=== PATIENT | female | born 1960 | race Caucasian/White ===

== ENCOUNTER → 2020-05-24 13:08 | Outpatient (BNVA) | payer MEDICARE, MEDICAID, SELFPAY | PROVIDERS: Visit Provider Anesthesiology | DX: M16.0 Bilateral primary osteoarthritis of hip (principal); M46.1 Sacroiliitis, not elsewhere classified; M47.16 Other spondylosis with myelopathy, lumbar region; G62.9 Polyneuropathy, unspecified; E11.42 Type 2 diabetes mellitus with diabetic polyneuropathy; Z79.899 Other long term (current) drug therapy | CPT/HCPCS: 99202 ==

== ENCOUNTER → 2020-06-14 13:52 | Outpatient (BNVA) | payer MEDICARE, MEDICAID, SELFPAY | PROVIDERS: PCP Nurse Practitioner Family; Visit Provider Anesthesiology | DX: M46.1 Sacroiliitis, not elsewhere classified (principal); M16.0 Bilateral primary osteoarthritis of hip; M47.16 Other spondylosis with myelopathy, lumbar region; G62.9 Polyneuropathy, unspecified; E11.42 Type 2 diabetes mellitus with diabetic polyneuropathy | CPT/HCPCS: 99212 ==

== ENCOUNTER 2020-06-27 06:26 | Outpatient (REF) | payer MEDICARE, MEDICAID, SELFPAY ==
--- NOTE | ~2020-06-27 | FL_ITS ---
EXAMINATION: XR FLUOROSCOPY WITH IMAGES CLINICAL INFORMATION: M46.1 - Sacroiliitis COMPARISON: None. TECHNIQUE: Fluoroscopy performed by Sally Mcguire NP. Fluoroscopy time: 0.3 minutes DAP: 1.63 Gycm2 Images: 1 FINDINGS: There is spinal needle overlying mid right SI joint. Some trace contrast is suggested both overlying the joint and early intra-articular. FL/FL guidance in treatment room IMPRESSION: Fluoroscopy for pain management procedure.
== END 2020-06-27 06:27 | disposition home or self-care (01) ==
LOC: HO.RADIR 06:26
PROVIDERS: Visit Provider Anesthesiology
DX: M46.1 Sacroiliitis, not elsewhere classified (principal)
CPT/HCPCS: 27096; J3300; Q9967

== ENCOUNTER → 2020-07-13 13:23 | Outpatient (BNVA) | payer MEDICARE, MEDICAID, SELFPAY | PROVIDERS: PCP Nurse Practitioner Family; Visit Provider Family Medicine Adult Medicine | DX: M46.1 Sacroiliitis, not elsewhere classified (principal); M16.0 Bilateral primary osteoarthritis of hip; M47.16 Other spondylosis with myelopathy, lumbar region; E11.42 Type 2 diabetes mellitus with diabetic polyneuropathy; M79.7 Fibromyalgia; M47.816 Spondylosis without myelopathy or radiculopathy, lumbar region; G62.9 Polyneuropathy, unspecified | CPT/HCPCS: 99212 ==

== ENCOUNTER → 2020-07-24 09:58 | Outpatient (BNVA) | payer MEDICARE, MEDICAID, SELFPAY | PROVIDERS: PCP Nurse Practitioner Family; Visit Provider Anesthesiology | DX: M46.1 Sacroiliitis, not elsewhere classified (principal); M16.0 Bilateral primary osteoarthritis of hip; M47.16 Other spondylosis with myelopathy, lumbar region; G62.9 Polyneuropathy, unspecified; E11.42 Type 2 diabetes mellitus with diabetic polyneuropathy | CPT/HCPCS: Q3014 ==

== ENCOUNTER → 2020-07-31 11:52 | Outpatient (BNVA) | payer MEDICARE, MEDICAID, SELFPAY | PROVIDERS: PCP Nurse Practitioner Family; Visit Provider Anesthesiology ==

== ENCOUNTER → 2020-08-07 13:22 | Outpatient (BNVA) | payer MEDICARE, MEDICAID, SELFPAY | PROVIDERS: PCP Nurse Practitioner Family; Visit Provider Anesthesiology | DX: M46.1 Sacroiliitis, not elsewhere classified (principal); M16.0 Bilateral primary osteoarthritis of hip; M47.16 Other spondylosis with myelopathy, lumbar region; G62.9 Polyneuropathy, unspecified; E11.42 Type 2 diabetes mellitus with diabetic polyneuropathy; M53.3 Sacrococcygeal disorders, not elsewhere classified | CPT/HCPCS: 99212 ==

== ENCOUNTER → 2020-08-21 14:31 | Outpatient (BNVA) | payer MEDICARE, MEDICAID, SELFPAY | PROVIDERS: PCP Nurse Practitioner Family; Visit Provider Anesthesiology | DX: M79.7 Fibromyalgia (principal); M46.1 Sacroiliitis, not elsewhere classified; M16.0 Bilateral primary osteoarthritis of hip; M47.16 Other spondylosis with myelopathy, lumbar region; G62.9 Polyneuropathy, unspecified; E11.42 Type 2 diabetes mellitus with diabetic polyneuropathy | CPT/HCPCS: Q3014 ==

== ENCOUNTER 2020-08-25 11:31 | Outpatient (REF) | payer MEDICARE, MEDICAID, SELFPAY ==
[2020-08-25 14:32] LABS: Alanine Aminotransferase 13 U/L (0-31); Albumin Level 4.1 g/dL (3.5-5.0); Alkaline Phosphatase 97 U/L (39-117); Anion Gap 12 (12-20); Aspartate Amino Transferase 18 U/L (5-31); Bilirubin Total 0.2 mg/dL (0.0-1.0); Blood Urea Nitrogen 8 mg/dL (9-16); Calcium 9.5 mg/dL (8.4-10.2); Carbon Dioxide 29 mmol/L (22-29); Chloride 105 mmol/L (96-108); Estimated Glomerular Filt Rate > 60; Glucose Random 80 mg/dL (60-115); Potassium 4.9 mmol/L (3.3-5.1); Sodium 141 mmol/L (135-145); Total Protein 6.7 g/dL (6.5-8.0)
== END 2020-08-25 11:32 | disposition home or self-care (01) ==
LOC: HO.10HDL 11:31
PROVIDERS: Visit Provider Anesthesiology
DX: M79.7 Fibromyalgia (principal)
CPT/HCPCS: 36415; 80053

== ENCOUNTER 2020-09-08 13:02 | Day surgery (SDC) | payer MEDICARE, MEDICAID, SELFPAY ==
[2020-09-08] VITALS (12 sets, daily range): BP systolic 85–135; BP diastolic 40–84; PULSE 64–104; RESP 14–18; TEMP 36.3–36.5; O2SAT 95–100; BMI 26.6
--- NOTE | ~2020-09-08 | FL_ITS ---
EXAMINATION: XR FLUOROSCOPY WITH IMAGES CLINICAL INFORMATION: Right-sided sacroiliac joint fusion. COMPARISON: None. TECHNIQUE: Fluoroscopy performed by Marck Robertson. Fluoroscopy time: 1.0 minutes DAP: 31.5 mGycm2 Images: 4 FINDINGS: Posterior instrumentation and interval hardware at S1-S2. FL/FL guidance in OR IMPRESSION: Limited intraoperative fluoroscopic radiographs.
--- NOTE | 2020-09-08 13:27 | HO.ANESPROP2 ---
FORMERLY [facility] Active Problems Active Problems: All Active Problems (Updated 08/07/20 @ 14:31 by Marck Robertson MD) Sacroiliac joint dysfunction of right side (Acute) Sacroiliac joint dysfunction of both sides (Acute) Lumbar spondylosis (Acute) Fibromyalgia (Acute) Diabetic peripheral neuropathy (Acute) Peripheral polyneuropathy (Acute) Spondylosis, lumbar, with myelopathy (Acute) Osteoarthritis, hip, bilateral (Acute) Sacroiliitis (Acute) Past Medical History Medical History Diabetic peripheral neuropathy Fibromyalgia Lumbar spondylosis Osteoarthritis, hip, bilateral Peripheral polyneuropathy Sacroiliac joint dysfunction of both sides Sacroiliac joint dysfunction of right side Sacroiliitis Spondylosis, lumbar, with myelopathy Surgical History Surgical History History of bariatric surgery Social History Social History Household Members Other:: lives with partner/friend Alcohol intake: never Patient Tobacco Use Status: Current everyday Tobacco user Use of substances other than those prescribed or required for medical reasons: No Have you been hit, kicked, punched, or otherwise hurt by someone within the past year? If so, by whom?: No Are you DNR?: No Advance Directives: No Advance Directives Information Provided: Yes Current occupation: disabled about 10 years due to fibromyalgia and low back pain Meds Allergies Allergy/AdvReac Type Severity Reaction Status Date / Time buprenorphine [From Belbuca] Allergy Mild Nausea Verified 09/08/20 13:06 gabapentin Allergy Mild Nausea Verified 09/08/20 13:06 latex Allergy Mild rash Verified 09/08/20 13:06 prednisone Allergy Mild rash Verified 09/08/20 13:06 pregabalin [From Lyrica] Allergy Mild rash Verified 09/08/20 13:06 Home Medications Medication Instructions Recorded Confirmed Last Taken Type amantadine HCl 100 mg capsule 100 mg PO DAILY 05/24/20 08/21/20 Unknown History lidocaine 5 % topical patch 1 patch TOPICAL DAILY 05/24/20 08/21/20 Unknown History loratadine 10 mg tablet 10 mg PO DAILY 05/24/20 08/21/20 Unknown History lorazepam 1 mg tablet 1 mg PO 05/24/20 08/21/20 Unknown History clonidine HCl 0.1 mg tablet 0.1 mg PO TID 06/14/20 08/21/20 Unknown History diazepam 2 mg tablet 1 mg PO DAILY tab 07/31/20 08/21/20 Unknown History diazepam 2 mg tablet 2 mg PO BEDTIME PRN 07/31/20 08/21/20 Unknown History Exam Exam Date and Time: September 08, 2020 1327 Height,Weight and Vital Signs: Height 5 ft 7 in Weight 77.111 kg Last Vital Signs Temp 97.7 F 09/08/20 13:16 Pulse 81 09/08/20 13:16 Resp 18 09/08/20 13:16 BP 125/55 L 09/08/20 13:16 Pulse Ox 98 09/08/20 13:16 Airway Mallampati Class: II TM Dist: >3cm Neck ROM: Full
--- NOTE | 2020-09-08 13:42 | MHC.SHP ---
Pre-Procedural Eval Section A Date of Service: 09/08/20 Changes since office visit: Yes Patient answered all questions The History & Physical has been completed within 30 days and I have reviewed it.: Yes Section B Chief Complaint: Sacroiliitis Details of Present Illness: as above Relevant Family History (Specify if Yes): No Relevant Social History: None Present Medications: see Short Stay Collaborative assessment Medical History: No relevant PMH History of Previous Operations: No relevant previous surgery Allergies: Allergies Allergy/AdvReac Type Severity Reaction Status Date / Time buprenorphine [From Belbuca] Allergy Mild Nausea Verified 09/08/20 13:06 gabapentin Allergy Mild Nausea Verified 09/08/20 13:06 latex Allergy Mild rash Verified 09/08/20 13:06 prednisone Allergy Mild rash Verified 09/08/20 13:06 pregabalin [From Lyrica] Allergy Mild rash Verified 09/08/20 13:06 Review of Systems Sugical H&P ROS: Negative: Constitution, Cardiovascular, Respiratory, Neurological, Psychiatric, Hem-Onc, Allergic/Immunologic, Gastrointestinal, Genitourinary, Musculoskeletal, Integumentary, Endocrine and Eyes/Ears/Nose/Throat Exam Surgical H&P Exam: Normal: HEENT, Normal: Heart, Normal: Lungs, Normal: Extremities, Normal: Abdomen, Normal: Skin and Normal: Neurological Plan Diagnosis/Plan: Unchanged I have reviewed the history and physical and performed a pertinent physical examination on my patient. No changes have occurred unless specified.
[2020-09-08] MEDS: Lactated Ringers 1,000 ML 100 ML IVCONT (13:44)
--- NOTE | 2020-09-08 13:56 | PC.NURSE ---
PATIENT WAS DIABETIC 13 YEARS AGO BUT HAS LOST WEIGHT AND HAS NOT BEEN TREATED FOR DIABETES FOR 13 YEARS. POC 90.
[2020-09-08 14:00] LABS: Glucose, Whole Blood 90 mg/dL (60-115)
--- NOTE | 2020-09-08 15:24 | PM.OP ---
Brief Operative Note Date of Service: 09/08/20 Pre-op diagnosis: Sacroiliitis sacroiliac joint instability Post-op diagnosis: same Procedure: PainteQ RIGHT SACROILIAC JOINT FUSION. Implants: ALLOGRAFT BONE AND BY LOGIC MATERIAL Surgeon: Marck Robertson MD Anesthesia: GETA Was an Associate Director Finance used for this Procedure?: No Estimated blood loss (mL): 40 Pathology: none sent Condition: stable Disposition: PACU
--- NOTE | 2020-09-08 15:29 | P.OP_ITS ---
Operative Note Operative Note Date of Service: 09/08/20 Narrative: Maren is very pleasant 60 years old female who is suffering from right sacroiliac joint insufficiency, instability and sacroiliitis on the right. She failed conservative management of sacroiliitis. She came today to receive the procedures as above. The risks and benefits including bleeding, infection, peripheral nerve damage, failure to reduce the pain were explained to the patient. The patient came to the operating room, she was positioned on the stretcher supine .[place] [employer] monitors were applied and patient was administered with general endotracheal anesthesia. After that the patient was transferred on operating table and positioned prone with all pressure points protected. The patient was administered 2 gramms cefasolin IV 15 minutes before the start of the procedure. Time-out was performed delineating correct site, side, and nature of the procedure, name and date of of the patient, risk of fire, need for DVT prophylaxis, need for antibiotics. All pressure points were protected. Lower back and bilateral buttocks were prepped with ChloraPrep and draped with full body drape. 3. 5 cm posterior midline incision over the projection of the right S1 foramina was performed. Soft tissue dissection done to sacroiliac joint and thorough blind dissection was made in the direction of the sacroiliac joint. K- wire pin was inserted into the sacroiliac joint and guiding instrument was inserted into the joint and advanced into the joint on the intermittent anterior posterior and lateral views. After that pin was removed and rasping device was inserted to broach and rasp sacroiliac joint. Once joint was prepared and inserted the structural allograft implant was hammered into the joint and packed ortho biologics in and around the implant to provide better opportunity for bones fusion. Surgery was concluded by performing standard suture closing technique. The position of the allograft was confirmed radiographically. The wound was irrigated, hemostasis was a chieved , wound was closed in 2 layers. Sterile dressing was applied. The patient tolerated procedure well, she was awaken and taken outside of the operating room to PACU where she recovered uneventfully. She went home without immediate complications. She will be wearing an SI joint fixation belt for the 6 weeks after the procedure.
[2020-09-08] MEDS: ondansetron HCL 4 MG/2 ML VIAL IVPUSH (15:44)
== END 2020-09-08 17:58 | disposition home or self-care (01) ==
PROVIDERS: PCP Nurse Practitioner Family; Visit Provider Anesthesiology
PROC: (CPT 27279; principal; 2020-09-08 14:00)
DX: M46.1 Sacroiliitis, not elsewhere classified (principal); M53.2X8 Spinal instabilities, sacral and sacrococcygeal region; M16.0 Bilateral primary osteoarthritis of hip; M47.16 Other spondylosis with myelopathy, lumbar region; M79.7 Fibromyalgia; M53.3 Sacrococcygeal disorders, not elsewhere classified; E11.42 Type 2 diabetes mellitus with diabetic polyneuropathy; Z98.84 Bariatric surgery status; F43.10 Post-traumatic stress disorder, unspecified; Z79.899 Other long term (current) drug therapy; Z88.8 Allergy status to other drugs, medicaments and biological substances; Z91.040 Latex allergy status; F17.200 Nicotine dependence, unspecified, uncomplicated
CPT/HCPCS: 27279; 82947; C1713; J0131; J0690; J1100; J1170; J1790; J2250; J2405; J2550; J3010; Q9967

== ENCOUNTER → 2020-09-19 10:31 | Outpatient (BNVA) | payer MEDICARE, MEDICAID, SELFPAY | PROVIDERS: PCP Nurse Practitioner Family; Visit Provider Nurse Practitioner Family | DX: M79.7 Fibromyalgia (principal); M46.1 Sacroiliitis, not elsewhere classified; M16.0 Bilateral primary osteoarthritis of hip; M47.16 Other spondylosis with myelopathy, lumbar region; G62.9 Polyneuropathy, unspecified; E11.42 Type 2 diabetes mellitus with diabetic polyneuropathy | CPT/HCPCS: 99212 ==

== ENCOUNTER → 2020-12-06 16:41 | Outpatient (BNVA) | payer MEDICARE, MEDICAID, SELFPAY | PROVIDERS: PCP Nurse Practitioner Family; Visit Provider Anesthesiology | DX: M79.7 Fibromyalgia (principal); M46.1 Sacroiliitis, not elsewhere classified; M16.0 Bilateral primary osteoarthritis of hip; M47.16 Other spondylosis with myelopathy, lumbar region; G62.9 Polyneuropathy, unspecified; E11.42 Type 2 diabetes mellitus with diabetic polyneuropathy | CPT/HCPCS: 99212 ==

== ENCOUNTER → 2020-12-13 14:24 | Outpatient (BNVA) | payer MEDICARE, MEDICAID, SELFPAY | PROVIDERS: PCP Nurse Practitioner Family; Visit Provider Anesthesiology ==

== ENCOUNTER → 2021-01-10 14:31 | Outpatient (BNVA) | payer MEDICARE, MEDICAID, SELFPAY | PROVIDERS: PCP Nurse Practitioner Family; Visit Provider Anesthesiology | DX: M79.7 Fibromyalgia (principal); M46.1 Sacroiliitis, not elsewhere classified; M16.0 Bilateral primary osteoarthritis of hip; M47.16 Other spondylosis with myelopathy, lumbar region; G62.9 Polyneuropathy, unspecified; E11.42 Type 2 diabetes mellitus with diabetic polyneuropathy | CPT/HCPCS: 99212 ==

== ENCOUNTER → 2021-01-22 12:58 | Outpatient (BNVA) | payer MEDICARE, MEDICAID, SELFPAY | PROVIDERS: PCP Nurse Practitioner Family; Visit Provider Internal Medicine | DX: J44.9 Chronic obstructive pulmonary disease, unspecified (principal); R05.9 Cough, unspecified; F17.200 Nicotine dependence, unspecified, uncomplicated | CPT/HCPCS: 99202 ==

== ENCOUNTER 2021-02-02 12:58 | Outpatient (REF) | payer MEDICARE, MEDICAID, SELFPAY ==
--- NOTE | 2021-02-02 16:50 | PFT_ITS ---
FLOWS: FEV1 66% of predicted at 1.89 L. FVC 84% of predicted at 3.10 L. FEV1 to FVC ratio of 0.61. Positive bronchodilator response. LUNG VOLUMES: Total lung capacity 98% of predicted at 5.41 L. Residual volume 119% of predicted at 2.55 L. Slow vital capacity 84% of predicted at 2.86 L. Expiratory reserve volume 64% of predicted at 0.65 L. Diffusion capacity is severely decreased. IMPRESSION: Moderate obstructive ventilatory defect with positive bronchodilator response. Decreased diffusion capacity suggests emphysema. Sekou Briggs MD AP/MODL / [id number]
== END 2021-02-02 12:59 | disposition home or self-care (01) ==
LOC: HO.RESP 12:58
PROVIDERS: PCP Nurse Practitioner Family; Visit Provider Internal Medicine
DX: J44.9 Chronic obstructive pulmonary disease, unspecified (principal); R05.9 Cough, unspecified; F17.200 Nicotine dependence, unspecified, uncomplicated
CPT/HCPCS: 94060; 94727; 94729

== ENCOUNTER → 2021-02-22 08:01 | Outpatient (BNVA) | payer MEDICARE, MEDICAID, SELFPAY | PROVIDERS: PCP Nurse Practitioner Family; Visit Provider Anesthesiology | DX: J44.9 Chronic obstructive pulmonary disease, unspecified (principal); R05.9 Cough, unspecified; F17.200 Nicotine dependence, unspecified, uncomplicated; M16.0 Bilateral primary osteoarthritis of hip; M79.7 Fibromyalgia; M46.1 Sacroiliitis, not elsewhere classified; M47.16 Other spondylosis with myelopathy, lumbar region; G62.9 Polyneuropathy, unspecified; E11.42 Type 2 diabetes mellitus with diabetic polyneuropathy | CPT/HCPCS: 99212; Q3014 ==

== ENCOUNTER 2021-03-05 11:25 | Outpatient (REF) | payer MEDICARE, MEDICAID, SELFPAY ==
--- NOTE | ~2021-03-05 | XR_ITS ---
EXAMINATION: XR HIP, RIGHT XR HIP, LEFT CLINICAL INFORMATION: Bilateral primary osteoarthritis of the hip. COMPARISON: None TECHNIQUE: AP and frog-leg lateral views of each hip. FINDINGS: RIGHT HIP: Small marginal osteophytes are present at the right hip joint. Right hip joint space appears well preserved. No fracture or malalignment. Bones are osteopenic. There is an osseous allograft at the right sacral ala suggesting prior right SI joint fusion. No definite osseous bridging across the right SI joint is seen on these images. 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 LEFT HIP: Left hip joint appears relatively well preserved aside from small marginal osteophytes. Unremarkable left SI joint. No fracture or malalignment. Bones are osteopenic. Soft tissues are unremarkable aside from a few phleboliths in the central pelvis. XR/XR hips SHAHRZAD min 3V IMPRESSION: 1. Osteoarthritis of the right sacroiliac joint with postsurgical changes of prior fusion. No definite osseous bridging across the SI joint on these images. 2. 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 3. Minimal osteoarthritis at the right hip. 4. Osteopenia.
[2021-03-05 15:24] LABS: Alanine Aminotransferase 11 U/L (0-31); Albumin Level 3.9 g/dL (3.5-5.0); Alkaline Phosphatase 84 U/L (39-117); Anion Gap 14 (12-20); Aspartate Amino Transferase 14 U/L (5-31); Bilirubin Total 0.4 mg/dL (0.0-1.0); Blood Urea Nitrogen 9 mg/dL (9-16); Carbon Dioxide 25 mmol/L (22-29); Chloride 104 mmol/L (96-108); Estimated Glomerular Filt Rate > 60; Glucose Random 88 mg/dL (60-115); Potassium 4.9 mmol/L (3.3-5.1); Sodium 138 mmol/L (135-145); Total Protein 6.5 g/dL (6.5-8.0)
== END 2021-03-05 11:26 | disposition home or self-care (01) ==
LOC: HO.10HDL 11:25
PROVIDERS: Visit Provider Anesthesiology
DX: M79.7 Fibromyalgia (principal); M16.0 Bilateral primary osteoarthritis of hip
CPT/HCPCS: 36415; 73522; 80053

== ENCOUNTER → 2021-03-07 15:13 | Outpatient (BNVA) | payer MEDICARE, MEDICAID, SELFPAY | PROVIDERS: PCP Nurse Practitioner Family; Visit Provider Anesthesiology | DX: M79.7 Fibromyalgia (principal); M46.1 Sacroiliitis, not elsewhere classified; M16.0 Bilateral primary osteoarthritis of hip; M47.16 Other spondylosis with myelopathy, lumbar region; G62.9 Polyneuropathy, unspecified; E11.42 Type 2 diabetes mellitus with diabetic polyneuropathy | CPT/HCPCS: 99212 ==

== ENCOUNTER → 2021-03-21 16:37 | Outpatient (BNVA) | payer MEDICARE, MEDICAID, SELFPAY | PROVIDERS: PCP Nurse Practitioner Family; Visit Provider Anesthesiology | DX: Z51.81 Encounter for therapeutic drug level monitoring (principal); F11.20 Opioid dependence, uncomplicated; M79.7 Fibromyalgia; M46.1 Sacroiliitis, not elsewhere classified; M16.0 Bilateral primary osteoarthritis of hip; M47.16 Other spondylosis with myelopathy, lumbar region; E11.42 Type 2 diabetes mellitus with diabetic polyneuropathy | CPT/HCPCS: 99212 ==

== ENCOUNTER → 2021-04-18 09:31 | Outpatient (BNVA) | payer MEDICARE, MEDICAID, SELFPAY | PROVIDERS: PCP Nurse Practitioner Family; Visit Provider Anesthesiology | DX: Z51.81 Encounter for therapeutic drug level monitoring (principal); F11.20 Opioid dependence, uncomplicated; M79.7 Fibromyalgia; M46.1 Sacroiliitis, not elsewhere classified; M16.0 Bilateral primary osteoarthritis of hip; M47.16 Other spondylosis with myelopathy, lumbar region; G62.9 Polyneuropathy, unspecified; E11.42 Type 2 diabetes mellitus with diabetic polyneuropathy | CPT/HCPCS: 99212 ==

== ENCOUNTER → 2021-05-16 11:37 | Outpatient (BNVA) | payer MEDICARE, MEDICAID, SELFPAY | PROVIDERS: PCP Nurse Practitioner Family; Visit Provider Anesthesiology | DX: Z51.81 Encounter for therapeutic drug level monitoring (principal); F11.20 Opioid dependence, uncomplicated | CPT/HCPCS: 99212 ==

== ENCOUNTER → 2021-06-13 11:11 | Outpatient (BNVA) | payer MEDICARE, MEDICAID, SELFPAY | PROVIDERS: PCP Nurse Practitioner Family; Visit Provider Anesthesiology | DX: Z51.81 Encounter for therapeutic drug level monitoring (principal); F11.20 Opioid dependence, uncomplicated | CPT/HCPCS: 99212 ==

== ENCOUNTER → 2021-08-01 11:32 | Outpatient (BNVA) | payer MEDICARE, MEDICAID, SELFPAY | PROVIDERS: PCP Nurse Practitioner Family; Visit Provider Anesthesiology | DX: Z13.89 Encounter for screening for other disorder (principal) ==

== ENCOUNTER → 2021-08-29 11:28 | Outpatient (BNVA) | payer MEDICARE, MEDICAID, SELFPAY | PROVIDERS: PCP Nurse Practitioner Family; Visit Provider Anesthesiology | DX: M53.3 Sacrococcygeal disorders, not elsewhere classified (principal); M79.7 Fibromyalgia; M46.1 Sacroiliitis, not elsewhere classified; M16.0 Bilateral primary osteoarthritis of hip; M47.16 Other spondylosis with myelopathy, lumbar region; G62.9 Polyneuropathy, unspecified; E11.42 Type 2 diabetes mellitus with diabetic polyneuropathy; Z79.891 Long term (current) use of opiate analgesic | CPT/HCPCS: 99212 ==

== ENCOUNTER → 2021-10-24 15:29 | Outpatient (BNVA) | payer MEDICARE, MEDICAID, SELFPAY | PROVIDERS: PCP Nurse Practitioner Family; Visit Provider Anesthesiology | DX: M53.3 Sacrococcygeal disorders, not elsewhere classified (principal); M79.7 Fibromyalgia; M46.1 Sacroiliitis, not elsewhere classified; M16.0 Bilateral primary osteoarthritis of hip; M47.16 Other spondylosis with myelopathy, lumbar region; G62.9 Polyneuropathy, unspecified; E11.42 Type 2 diabetes mellitus with diabetic polyneuropathy; Z79.891 Long term (current) use of opiate analgesic | CPT/HCPCS: 99212 ==

== ENCOUNTER → 2021-12-26 13:30 | Outpatient (BNVA) | payer MEDICARE, MEDICAID, SELFPAY | PROVIDERS: PCP Nurse Practitioner Family; Visit Provider Anesthesiology | DX: M53.3 Sacrococcygeal disorders, not elsewhere classified (principal); K71.6 Toxic liver disease with hepatitis, not elsewhere classified; T50.905A Adverse effect of unspecified drugs, medicaments and biological substances, initial encounter; M79.7 Fibromyalgia; M46.1 Sacroiliitis, not elsewhere classified; M16.0 Bilateral primary osteoarthritis of hip; M47.16 Other spondylosis with myelopathy, lumbar region; G62.9 Polyneuropathy, unspecified; E11.42 Type 2 diabetes mellitus with diabetic polyneuropathy | CPT/HCPCS: 99212 ==

== ENCOUNTER → 2022-02-27 13:28 | Outpatient (BNVA) | payer MEDICARE, MEDICAID, SELFPAY | PROVIDERS: PCP Nurse Practitioner Family; Visit Provider Anesthesiology | DX: M53.3 Sacrococcygeal disorders, not elsewhere classified (principal); M79.7 Fibromyalgia; M46.1 Sacroiliitis, not elsewhere classified; M16.0 Bilateral primary osteoarthritis of hip; M47.16 Other spondylosis with myelopathy, lumbar region; G62.9 Polyneuropathy, unspecified; E11.42 Type 2 diabetes mellitus with diabetic polyneuropathy | CPT/HCPCS: 99212 ==

== ENCOUNTER → 2022-04-24 13:36 | Outpatient (BNVA) | payer MEDICARE, MEDICAID, SELFPAY | PROVIDERS: PCP Nurse Practitioner Family; Visit Provider Anesthesiology | DX: Z51.81 Encounter for therapeutic drug level monitoring (principal); F11.20 Opioid dependence, uncomplicated; M53.3 Sacrococcygeal disorders, not elsewhere classified; M79.7 Fibromyalgia; M46.1 Sacroiliitis, not elsewhere classified; M16.0 Bilateral primary osteoarthritis of hip; M47.16 Other spondylosis with myelopathy, lumbar region; G62.9 Polyneuropathy, unspecified; E11.42 Type 2 diabetes mellitus with diabetic polyneuropathy | CPT/HCPCS: 99212 ==

== ENCOUNTER → 2022-06-19 13:27 | Outpatient (BNVA) | payer MEDICARE, MEDICAID, SELFPAY | PROVIDERS: PCP Nurse Practitioner Family; Visit Provider Anesthesiology | DX: Z79.891 Long term (current) use of opiate analgesic (principal) | CPT/HCPCS: 99211 ==

== ENCOUNTER → 2022-08-22 13:09 | Outpatient (BNVA) | payer MEDICARE, MEDICAID, SELFPAY | PROVIDERS: PCP Nurse Practitioner Family; Visit Provider Anesthesiology | DX: Z51.81 Encounter for therapeutic drug level monitoring (principal); F11.20 Opioid dependence, uncomplicated | CPT/HCPCS: 99211 ==

== ENCOUNTER 2022-10-02 13:59 | Outpatient (AMB) | payer MEDICARE, MEDICAID, SELFPAY ==
[2022-10-02 14:52] VITALS: BP 118/78; PULSE 69; O2SAT 96; BMI 31.4
--- NOTE | 2022-10-02 14:52 | MHC.OFFVIS ---
Intake Vital Signs 10/02/22 14:52 Height 5 ft 7 in Weight 200 lb 6 oz BMI 31.4 BP 118/78 Blood Pressure Location Rt brachial Position Sitting Pulse 69 Pulse Source Pulse Oximeter Pulse Oximetry (%) 96 Oxygen Delivery Method Room Air Intake Visit Reasons: Med count, counted and correct Intake Note: Pt here for pill count. She presents Tramadol, #94.5/should have #72, last taken this afternoon. Pt reports 8/10 pain on pain scale Allergies buprenorphine [From Belbuca] Allergy (Mild, Verified 10/02/22 14:54) Nausea gabapentin Allergy (Mild, Verified 10/02/22 14:54) Nausea latex Allergy (Mild, Verified 10/02/22 14:54) rash prednisone Allergy (Mild, Verified 10/02/22 14:54) rash pregabalin [From Lyrica] Allergy (Mild, Verified 10/02/22 14:54) rash hydroxyzine Allergy (Unknown, Verified 10/02/22 14:54) shotness of breath Medication List - Last Reconciled 10/02/22 by Michell Blackwood RN albuterol sulfate 90 mcg/actuation 2 inhalations inhalation Q6-8H PRN albuterol sulfate 2.5 mg inhalation Q6H PRN amantadine HCl 100 mg PO DAILY baclofen 10 mg PO BID 30 days budesonide-formoterol 80-4.5 mcg/actuation (Symbicort) inhalation chlorhexidine gluconate 0.12% mL PO BID clonidine HCl 0.1 mg PO TID duloxetine 40 mg PO BID 30 days fluticasone propionate 50 mcg/actuation 1 spray intranasal BID folic acid 1 mg PO DAILY lidocaine 5% 1 patch topical DAILY loratadine 10 mg PO DAILY lorazepam 2.5 mg PO BEDTIME naloxone 4 mg/actuation 4 mg intranasal Q2M PRN 1 day nystatin (Nyamyc) topical BID PRN pantoprazole 40 mg PO DAILY tramadol 50 mg PO Q6H PRN HPI HPI Comments History of Present Illness Details Maren is a pleasant 62 year old female who presents to the office today for follow up chronic pain and chronic opioid therapy management. Patient is prescribed Tramadol 50mg tablets, take 1 tablet four times daily as needed for pain. Patient arrived today with the expectation of having 72 pills, she presented 94.5 pills which were counted in the presence of 2 staff and return to the patient in the original prescription bottle. This demonstrates responsible attitude toward patient's opioid medications. Pain is reported today as 8/10 and last dose of pain medication was taken this afternoon. Pain is adequately managed on current opioid regimen. Patient denies any recent changes or exacerbations of chronic back pain and states she is able to engage in activities of daily living with minimal interruption due to chronic pain with the benefits of her pain medications. Patient denies side effects including somnolence, constipation, itching, dyspnea, rash, dizziness or weakness. Patient denies issues with constipation currently. She has been taking stool softeners and made dietary modifications that she reports have been working well. [employer] has been working in the home with her. They have been trying to get a walker chair for her but she has run into problems facilitating it. She would like to have one ordered for her today. Prior: Maren is in the office today for the pill count.? Her pill count is appropriate today she presented with 11 pills of tramadol.? She supposed to bring 4 pills.? I will renew the medications.? I will see her in 2 month for another pill count.? She went for physical therapy for her left shoulder pain and now she states that her physical therapy is helping her significantly.? She reports that she continues home exercise program in between the sessions of physical therapy.? She is planning to continue home exercise program after she will complete physical therapy.? She reports constipation.? She takes stool softener every day for constipation.? I think it is too much.? I recommended her to switch to diet modification including raw vegetables legumes and nuts.? I also recommended her to try OTC Metamucil.? If those measures would not help her constipation we would need to start her on Movantik. ? She again reported severe discomfort in the right and less in the left SI joint. ? Unfortunately she reports that her psychiatrist does not see any reason but to continue lorazepam at minimal does.? It helps her to avoid nightmares , fear attacks and frequent awakening. ?She was prescribed elevated doses of Cymbalta? Her Chem 20 was normal, we would like to repeat her LFT sometime tomorrow - the order was entered. She is status post failed SI joint fusion, she is a smoker and the ostial bridge did not develop in between sacral and iliac bone.? Original position of the fusion device was satisfactory.? The probable reason for the arthrodesis failure is smoking. We are waiting for her to be called with psychological evaluation from [facility].? After that if she is approved we will perform the trial on the right .? Currently only tell her that she may continue her tramadol as it was prescribed. [facility], [facility] Medical History COPD (chronic obstructive pulmonary disease) Cough Diabetic peripheral neuropathy Fibromyalgia Lumbar spondylosis Osteoarthritis of right hip Osteoarthritis, hip, bilateral Peripheral polyneuropathy Sacroiliac joint dysfunction of both sides Sacroiliac joint dysfunction of right side Sacroiliitis Shortness of breath Smoker Spondylosis, lumbar, with myelopathy Surgical History History of bariatric surgery Social History (Updated 01/22/21 @ 13:20 by Martha Vera Philip) Household Members Other:: lives with partner/friend Alcohol intake: never Patient Tobacco Use Status: Current everyday Tobacco user Cigarettes Per Day: 10 Current occupation: disabled about 10 years due to fibromyalgia and low back pain Review of Systems Const All systems reviewed & are unremarkable except as noted in HPI and below ENT Reports Normal hearing present Neuro Reports Normal hearing present, Denies Abnormal speech present and Denies confusion Psych Denies confusion Physical Exam Vital Signs: Last Vital Signs Pulse 69 10/02/22 14:52 BP 118/78 10/02/22 14:52 Pulse Ox 96 10/02/22 14:52 Oxygen Delivery Method Room Air 10/02/22 14:52 BMI result Body Mass Index 31.4 Const General: No confusion Nutritional Appearance: overweight Orientation/consciousness: No confusion Limitations: no limitations HEENT Head: Yes normocephalic and Yes atraumatic Ears: hearing grossly normal bilaterally Eyes General: appearance normal, both eyes and all related structures Eyelids: Yes eyelids normal Pupils: Equal, round and reactive pupils present EOM: EOMs intact bilaterally Neck Neck: Yes normal visual inspection and Yes no JVD Resp Effort & Inspection: normal respiratory effort, able to speak in complete sentences and no audible wheezes Cardio Jugular venous distension: no JVD Back/Spine/Pelvis Other: Neuro General: No confusion Cranial nerves: Yes Equal, round and reactive pupils present and Yes Normal hearing present Speech: No Abnormal speech present Psych Appearance: grossly normal Mental Status: mental status grossly normal Speech and movement: Normal speech and movement present Affect: normal affect Attitude: cooperative Thought process: Normal thought process present Thought content: Normal thought content present Insight: Good insight present (Psych) Judgement: Good judgement present (Psych) Assessment & Plan Assessment & Plan (1) Sacroiliac joint dysfunction of right side: Code(s): M53.3 - Sacrococcygeal disorders, not elsewhere classified (2) Sacroiliac joint dysfunction of both sides: Code(s): M53.3 - Sacrococcygeal disorders, not elsewhere classified (3) Fibromyalgia: Code(s): M79.7 - Fibromyalgia (4) Sacroiliitis: Code(s): M46.1 - Sacroiliitis, not elsewhere classified (5) Osteoarthritis, hip, bilateral: Code(s): M16.0 - Bilateral primary osteoarthritis of hip (6) Spondylosis, lumbar, with myelopathy: Code(s): M47.16 - Other spondylosis with myelopathy, lumbar region (7) Peripheral polyneuropathy: Code(s): G62.9 - Polyneuropathy, unspecified (8) Diabetic peripheral neuropathy: Code(s): E11.42 - Type 2 diabetes mellitus with diabetic polyneuropathy Plan [employer] was reviewed and without concerns. No obvious signs of diversion, abuse or misuse of the opioid medications. Will send in prescription for Tramadol 50mg tabs, take one tab four times daily as needed for pain with an advanced date of 10/21/2022. Discussed Movantik with patient today but she declines. The current regime in working well for her and she would like to keep with stool softeners and dietary modifications. Order for Rollator Walker sent to [facility] in [place] per patient request. Patient to follow-up in the office in 2 month, sooner if needed. All questions and concerns have been answered and patient agrees with the plan. Medications: New tramadol 50 mg PO Q6H PRN 120 tabs 1RF pain G62.9 - Polyneuropathy, unspecified, M47.16 - Other spondylosis with myelopathy, lumbar region, M47.816 - Spondylosis without myelopathy or radiculopathy, lumbar region, M53.3 - Sacrococcygeal disorders, not elsewhere classified, M79.7 - Fibromyalgia walker (Ultra-Light Rollator misc) As directed 1 ea 0RF Coding Level of Care Code Est Pt Level 3 (23517) Diagnoses Sacroiliac joint dysfunction of right side M53.3 Sacroiliac joint dysfunction of both sides M53.3 Fibromyalgia M79.7 Sacroiliitis M46.1 Osteoarthritis, hip, bilateral M16.0 Spondylosis, lumbar, with myelopathy M47.16 Peripheral polyneuropathy G62.9 Diabetic peripheral neuropathy E11.42
== END 2022-10-02 14:53 | disposition home or self-care (01) ==
PROVIDERS: PCP Nurse Practitioner Family; Visit Provider Anesthesiology
DX: M53.3 Sacrococcygeal disorders, not elsewhere classified (principal); M79.7 Fibromyalgia; M46.1 Sacroiliitis, not elsewhere classified; M16.0 Bilateral primary osteoarthritis of hip; M47.16 Other spondylosis with myelopathy, lumbar region; G62.9 Polyneuropathy, unspecified; E11.42 Type 2 diabetes mellitus with diabetic polyneuropathy
CPT/HCPCS: 99213

== ENCOUNTER → 2022-10-02 13:59 | Outpatient (BNVA) | payer MEDICARE, MEDICAID, SELFPAY | PROVIDERS: PCP Nurse Practitioner Family; Visit Provider Anesthesiology | DX: Z51.81 Encounter for therapeutic drug level monitoring (principal); F11.20 Opioid dependence, uncomplicated; M53.3 Sacrococcygeal disorders, not elsewhere classified; M79.7 Fibromyalgia; M46.1 Sacroiliitis, not elsewhere classified; M16.0 Bilateral primary osteoarthritis of hip; M47.16 Other spondylosis with myelopathy, lumbar region; E11.42 Type 2 diabetes mellitus with diabetic polyneuropathy; G62.9 Polyneuropathy, unspecified | CPT/HCPCS: 99212 ==

== ENCOUNTER 2022-12-04 11:00 | Outpatient (AMB) | payer MEDICARE, MEDICAID, SELFPAY ==
--- NOTE | 2022-12-04 11:07 | A.OFFVIS_ITS ---
Intake Vital Signs 12/04/22 11:17 Height 5 ft 7 in Weight 197 lb 8 oz BMI 30.9 BP 118/56 L Blood Pressure Location Lt brachial Position Sitting Respiration 16 Pulse 80 Pulse Source Pulse Oximeter Pulse Oximetry (%) 97 Oxygen Delivery Method Room Air Intake Visit Reasons: Pill count/Confirmed Intake Note: patient comes in for pill count. Allergies buprenorphine [From Belbuca] Allergy (Mild, Verified 12/04/22 11:17) Nausea gabapentin Allergy (Mild, Verified 12/04/22 11:17) Nausea latex Allergy (Mild, Verified 12/04/22 11:17) rash prednisone Allergy (Mild, Verified 12/04/22 11:17) rash pregabalin [From Lyrica] Allergy (Mild, Verified 12/04/22 11:17) rash hydroxyzine Allergy (Unknown, Verified 12/04/22 11:17) shotness of breath HPI HPI Comments History of Present Illness Details Maren is a pleasant 62 year old female who presents to the office today for follow up chronic pain and chronic opioid therapy management. Patient is prescribed Tramadol 50mg tablets, take 1 tablet four times daily as needed for pain. Patient arrived today with the expectation of having 40 pills, she presented 43 pills which were counted in the presence of 2 staff members. This demonstrates responsible attitude toward patient's opioid medications. Pain is reported today as 8/10 and last dose of pain medication was taken this afternoon. Pain is adequately managed on current opioid regimen. Patient denies any recent changes or exacerbations of chronic back pain and states she is able to engage in activities of daily living with minimal interruption due to chronic pain with the benefits of her pain medications. Patient denies side effects including somnolence, constipation, itching, dyspnea, rash, dizziness or weakness. Patient denies issues with constipation currently. She has been taking stool softeners and made dietary modifications that she reports have been working well. She complains another pain generator to look into. She has a pain in her left shoulder due to left shoulder osteoarthritis. Prior: Maren is in the office today for the pill count.? Her pill count is appropriate today she presented with 11 pills of tramadol.? She supposed to bring 4 pills.? I will renew the medications.? I will see her in 2 month for another pill count.? She went for physical therapy for her left shoulder pain and now she states that her physical therapy is helping her significantly.? She reports that she continues home exercise program in between the sessions of physical therapy.? She is planning to continue home exercise program after she will complete physical therapy.? She reports constipation.? She takes stool softener every day for constipation.? I think it is too much.? I recommended her to switch to diet modification including raw vegetables legumes and nuts.? I also recommended her to try OTC Metamucil.? If those measures would not help her constipation we would need to start her on Movantik. ? She again reported severe discomfort in the right and less in the left SI joint. ? Unfortunately she reports that her psychiatrist does not see any reason but to continue lorazepam at minimal does.? It helps her to avoid nightmares , fear attacks and frequent awakening. ?She was prescribed elevated doses of Cymbalta? Her Chem 20 was normal, we would like to repeat her LFT sometime tomorrow - the order was entered. She is status post failed SI joint fusion, she is a smoker and the ostial bridge did not develop in between sacral and iliac bone.? Original position of the fusion device was satisfactory.? The probable reason for the arthrodesis failure is smoking. We are waiting for her to be called with psychological evaluation from [facility].? After that if she is approved we will perform the trial on the right .? Currently only tell her that she may continue her tramadol as it was prescribed. [facility] Medical History COPD (chronic obstructive pulmonary disease) Cough Diabetic peripheral neuropathy Fibromyalgia Lumbar spondylosis Osteoarthritis of right hip Osteoarthritis, hip, bilateral Peripheral polyneuropathy Sacroiliac joint dysfunction of both sides Sacroiliac joint dysfunction of right side Sacroiliitis Shortness of breath Smoker Spondylosis, lumbar, with myelopathy Surgical History History of bariatric surgery Social History (Updated 01/22/21 @ 13:20 by EVELYN Vann) Household Members Other:: lives with partner/friend Alcohol intake: never Patient Tobacco Use Status: Current everyday Tobacco user Cigarettes Per Day: 10 Current occupation: disabled about 10 years due to fibromyalgia and low back pain Review of Systems ENT Reports Normal hearing present Neuro Reports Normal hearing present, Denies Abnormal speech present and Denies confusion Psych Denies confusion Physical Exam Vital Signs: Last Vital Signs Pulse 80 12/04/22 11:17 Resp 16 12/04/22 11:17 BP 118/56 L 12/04/22 11:17 Pulse Ox 97 12/04/22 11:17 Oxygen Delivery Method Room Air 12/04/22 11:17 BMI result Body Mass Index 30.9 Const General: No confusion Nutritional Appearance: overweight Orientation/consciousness: No confusion Limitations: no limitations HEENT Head: Yes normocephalic and Yes atraumatic Ears: hearing grossly normal bilaterally Eyes General: appearance normal, both eyes and all related structures Eyelids: Yes eyelids normal Pupils: Equal, round and reactive pupils present EOM: EOMs intact bilaterally Neck Neck: Yes normal visual inspection and Yes no JVD Resp Effort & Inspection: normal respiratory effort, able to speak in complete sentences and no audible wheezes Cardio Jugular venous distension: no JVD Back/Spine/Pelvis Other: Neuro General: No confusion Cranial nerves: Yes Equal, round and reactive pupils present and Yes Normal hearing present Speech: No Abnormal speech present Psych Appearance: grossly normal Mental Status: mental status grossly normal Speech and movement: Normal speech and movement present Affect: normal affect Attitude: cooperative Thought process: Normal thought process present Thought content: Normal thought content present Insight: Good insight present (Psych) Judgement: Good judgement present (Psych) Assessment & Plan Assessment & Plan (1) Sacroiliac joint dysfunction of right side: Code(s): M53.3 - Sacrococcygeal disorders, not elsewhere classified (2) Sacroiliac joint dysfunction of both sides: Code(s): M53.3 - Sacrococcygeal disorders, not elsewhere classified (3) Fibromyalgia: Code(s): M79.7 - Fibromyalgia (4) Sacroiliitis: Code(s): M46.1 - Sacroiliitis, not elsewhere classified (5) Osteoarthritis, hip, bilateral: Code(s): M16.0 - Bilateral primary osteoarthritis of hip (6) Spondylosis, lumbar, with myelopathy: Code(s): M47.16 - Other spondylosis with myelopathy, lumbar region (7) Peripheral polyneuropathy: Code(s): G62.9 - Polyneuropathy, unspecified (8) Diabetic peripheral neuropathy: Code(s): E11.42 - Type 2 diabetes mellitus with diabetic polyneuropathy Plan [place] was reviewed and without concerns. No obvious signs of diversion, abuse or misuse of the opioid medications. Will send in prescription for Tramadol 50mg tabs, take one tab four times daily as needed for pain with an advanced date of December 14 2022. Left shoulder pain discussed today. Interscalene injection in preparation for potential PNS was discussed with the patient. However we noticed that the patient never had in our records shoulder injections and or shoulder x-rays on the left. If she never did it we probably needs to perform those to diagnostic and potentially therapeutic procedures before with start to talk about neuromodulation. If she was ever under care of orthopedic surgeon about her left shoulder we need to obtain the note from this doctor as well. She manages her mild constipation with stool softener and Incruse fluid intake. Patient to follow-up in the office in 2 month, sooner if needed. Medications: New tramadol 50 mg PO Q6H PRN 120 tabs 1RF pain 30 days Coding Level of Care Code Est Pt Level 4 (88387) Diagnoses Sacroiliac joint dysfunction of right side M53.3 Sacroiliac joint dysfunction of both sides M53.3 Fibromyalgia M79.7 Sacroiliitis M46.1 Osteoarthritis, hip, bilateral M16.0 Spondylosis, lumbar, with myelopathy M47.16 Peripheral polyneuropathy G62.9 Diabetic peripheral neuropathy E11.42
[2022-12-04 11:17] VITALS: BP 118/56; PULSE 80; RESP 16; O2SAT 97; BMI 30.9
== END 2022-12-04 12:03 | disposition home or self-care (01) ==
PROVIDERS: PCP Nurse Practitioner Family; Visit Provider Anesthesiology
DX: M53.3 Sacrococcygeal disorders, not elsewhere classified (principal); M79.7 Fibromyalgia; M46.1 Sacroiliitis, not elsewhere classified; E11.42 Type 2 diabetes mellitus with diabetic polyneuropathy; M47.16 Other spondylosis with myelopathy, lumbar region; M16.0 Bilateral primary osteoarthritis of hip
CPT/HCPCS: 99214

== ENCOUNTER → 2022-12-04 11:00 | Outpatient (BNVA) | payer MEDICARE, MEDICAID, SELFPAY | PROVIDERS: PCP Nurse Practitioner Family; Visit Provider Anesthesiology | DX: Z51.81 Encounter for therapeutic drug level monitoring (principal); F11.20 Opioid dependence, uncomplicated; M53.3 Sacrococcygeal disorders, not elsewhere classified; M79.7 Fibromyalgia; M46.1 Sacroiliitis, not elsewhere classified; M16.0 Bilateral primary osteoarthritis of hip; M47.16 Other spondylosis with myelopathy, lumbar region; E11.42 Type 2 diabetes mellitus with diabetic polyneuropathy; G62.9 Polyneuropathy, unspecified | CPT/HCPCS: 99212 ==

== ENCOUNTER 2023-01-29 11:42 | Outpatient (AMB) | payer MEDICARE, MEDICAID, SELFPAY ==
[2023-01-29 11:51] VITALS: BP 117/69; PULSE 88; RESP 18
--- NOTE | 2023-01-29 11:51 | MHC.OFFVIS ---
Intake Vital Signs 01/29/23 11:51 Height 5 ft 7 in BP 117/69 Blood Pressure Location Lt brachial Position Sitting Respiration 18 Pulse 88 Pulse Source Pulse Oximeter Intake Visit Reasons: Medication Count/ Random UDS - Confirmed Allergies buprenorphine [From Belbuca] Allergy (Mild, Verified 01/29/23 11:51) Nausea gabapentin Allergy (Mild, Verified 01/29/23 11:51) Nausea latex Allergy (Mild, Verified 01/29/23 11:51) rash prednisone Allergy (Mild, Verified 01/29/23 11:51) rash pregabalin [From Lyrica] Allergy (Mild, Verified 01/29/23 11:51) rash hydroxyzine Allergy (Unknown, Verified 01/29/23 11:51) shotness of breath HPI HPI Comments History of Present Illness Details Maren is a very pleasant 62 year old female who presents to the office for follow up chronic pain and chronic opioid therapy management. Patient is prescribed Tramadol 50mg Q6H PRN. Patient arrived today with the expectation of having 76 pills, she presented 77 pills which were counted in the presence of two staff members and returned to the patient in the original prescription bottle. This demonstrates responsible attitude toward patient's opioid medications. Pain is reported today as 7/10 and last dose of pain medication was taken at 09:00 this morning. Pain is adequately managed on current opioid regimen. Patient denies any recent changes of chronic pain and states she is able to engage in activities of daily living with minimal interruption due to chronic pain. Patient denies side effects including somnolence, constipation, itching, dyspnea, rash, dizziness or weakness. Prior: Maren is a pleasant 62 year old female who presents to the office today for follow up chronic pain and chronic opioid therapy management. Patient is prescribed Tramadol 50mg tablets, take 1 tablet four times daily as needed for pain. Patient arrived today with the expectation of having 40 pills, she presented 43 pills which were counted in the presence of 2 staff members. This demonstrates responsible attitude toward patient's opioid medications. Pain is reported today as 8/10 and last dose of pain medication was taken this afternoon. Pain is adequately managed on current opioid regimen. Patient denies any recent changes or exacerbations of chronic back pain and states she is able to engage in activities of daily living with minimal interruption due to chronic pain with the benefits of her pain medications. Patient denies side effects including somnolence, constipation, itching, dyspnea, rash, dizziness or weakness. Patient denies issues with constipation currently. She has been taking stool softeners and made dietary modifications that she reports have been working well. She complains another pain generator to look into. She has a pain in her left shoulder due to left shoulder osteoarthritis. Prior: Maren is in the office today for the pill count.? Her pill count is appropriate today she presented with 11 pills of tramadol.? She supposed to bring 4 pills.? I will renew the medications.? I will see her in 2 month for another pill count.? She went for physical therapy for her left shoulder pain and now she states that her physical therapy is helping her significantly.? She reports that she continues home exercise program in between the sessions of physical therapy.? She is planning to continue home exercise program after she will complete physical therapy.? She reports constipation.? She takes stool softener every day for constipation.? I think it is too much.? I recommended her to switch to diet modification including raw vegetables legumes and nuts.? I also recommended her to try OTC Metamucil.? If those measures would not help her constipation we would need to start her on Movantik. ? She again reported severe discomfort in the right and less in the left SI joint. ? Unfortunately she reports that her psychiatrist does not see any reason but to continue lorazepam at minimal does.? It helps her to avoid nightmares , fear attacks and frequent awakening. ?She was prescribed elevated doses of Cymbalta? Her Chem 20 was normal, we would like to repeat her LFT sometime tomorrow - the order was entered. She is status post failed SI joint fusion, she is a smoker and the ostial bridge did not develop in between sacral and iliac bone.? Original position of the fusion device was satisfactory.? The probable reason for the arthrodesis failure is smoking. We are waiting for her to be called with psychological evaluation from [facility].? After that if she is approved we will perform the trial on the right .? Currently only tell her that she may continue her tramadol as it was prescribed. [facility] Medical History COPD (chronic obstructive pulmonary disease) Cough Diabetic peripheral neuropathy Fibromyalgia Lumbar spondylosis Osteoarthritis of right hip Osteoarthritis, hip, bilateral Peripheral polyneuropathy Sacroiliac joint dysfunction of both sides Sacroiliac joint dysfunction of right side Sacroiliitis Shortness of breath Smoker Spondylosis, lumbar, with myelopathy Surgical History History of bariatric surgery Social History (Updated 01/22/21 @ 13:20 by EVELYN Vann) Household Members Other:: lives with partner/friend Alcohol intake: never Patient Tobacco Use Status: Current everyday Tobacco user Cigarettes Per Day: 10 Current occupation: disabled about 10 years due to fibromyalgia and low back pain Review of Systems Const All systems reviewed & are unremarkable except as noted in HPI and below Physical Exam Vital Signs: Last Vital Signs Pulse 88 01/29/23 11:51 Resp 18 01/29/23 11:51 BP 117/69 01/29/23 11:51 General: awake, alert, oriented. Answers questions appropriately. Fully engaged in examination. Skin: warm, dry, intact HEENT: Normocephalic. Hearing intact. Cardiac: External chest normal in appearance. Respiratory: No cough, audible wheezing or stridor. Abdomen: without gross distension. MS: No obvious swelling or deformities. Able to transition from sit to stand unassisted. Ambulates with bilaterally normal heel strike and toe off Neurological: Oriented to person, place, time and situation. Thought process intact. No gait abnormalities appreciated. Psychiatric: Appropriate mood and affect. Good judgment and insight. Assessment & Plan Assessment & Plan (1) Sacroiliac joint dysfunction of right side: Code(s): M53.3 - Sacrococcygeal disorders, not elsewhere classified (2) Sacroiliac joint dysfunction of both sides: Code(s): M53.3 - Sacrococcygeal disorders, not elsewhere classified (3) Fibromyalgia: Code(s): M79.7 - Fibromyalgia (4) Sacroiliitis: Code(s): M46.1 - Sacroiliitis, not elsewhere classified (5) Osteoarthritis, hip, bilateral: Code(s): M16.0 - Bilateral primary osteoarthritis of hip (6) Spondylosis, lumbar, with myelopathy: Code(s): M47.16 - Other spondylosis with myelopathy, lumbar region (7) Peripheral polyneuropathy: Code(s): G62.9 - Polyneuropathy, unspecified (8) Diabetic peripheral neuropathy: Code(s): E11.42 - Type 2 diabetes mellitus with diabetic polyneuropathy Plan [place] was reviewed and without concerns. No obvious signs of diversion, abuse or misuse of the opioid medications. Will send in prescription for Tramadol 50mg tabs, take one tab Q6H PRN 1RF with an advanced date of 02/16/23. Patient was given req for random UDS to complete at time of visit downstairs in the lab. All questions and concerns were answered, follow-up in the office in 2 months, sooner if needed. Medications: Refilled tramadol 50 mg PO Q6H 30 days PRN 120 tabs 1RF pain Coding Level of Care Code Est Pt Level 3 (62756) Diagnoses Sacroiliac joint dysfunction of right side M53.3 Sacroiliac joint dysfunction of both sides M53.3 Fibromyalgia M79.7 Sacroiliitis M46.1 Osteoarthritis, hip, bilateral M16.0 Spondylosis, lumbar, with myelopathy M47.16 Peripheral polyneuropathy G62.9 Diabetic peripheral neuropathy E11.42
== END 2023-01-29 11:54 | disposition home or self-care (01) ==
PROVIDERS: PCP Nurse Practitioner Family; Visit Provider Registered Nurse Emergency
DX: M53.3 Sacrococcygeal disorders, not elsewhere classified (principal); M79.7 Fibromyalgia; M46.1 Sacroiliitis, not elsewhere classified; M16.0 Bilateral primary osteoarthritis of hip; M47.16 Other spondylosis with myelopathy, lumbar region; G62.9 Polyneuropathy, unspecified; E11.42 Type 2 diabetes mellitus with diabetic polyneuropathy
CPT/HCPCS: 99214

== ENCOUNTER → 2023-01-29 11:42 | Outpatient (BNVA) | payer MEDICARE, MEDICAID, SELFPAY | PROVIDERS: PCP Nurse Practitioner Family; Visit Provider Registered Nurse Emergency | DX: M53.3 Sacrococcygeal disorders, not elsewhere classified (principal); M79.7 Fibromyalgia; M46.1 Sacroiliitis, not elsewhere classified; M16.0 Bilateral primary osteoarthritis of hip; M47.16 Other spondylosis with myelopathy, lumbar region; E11.42 Type 2 diabetes mellitus with diabetic polyneuropathy; G62.9 Polyneuropathy, unspecified | CPT/HCPCS: 99212 ==

== ENCOUNTER 2023-04-09 11:29 | Outpatient (AMB) | payer MEDICARE, MEDICAID, SELFPAY ==
--- NOTE | 2023-04-09 11:33 | MHC.OFFVIS ---
Intake Vital Signs 04/09/23 11:42 Height 5 ft 7 in Weight 202 lb 8 oz BMI 31.7 BP 108/56 L Blood Pressure Location Lt brachial Position Sitting Respiration 16 Pulse 90 Pulse Source Pulse Oximeter Pulse Oximetry (%) 96 Oxygen Delivery Method Room Air Intake Visit Reasons: Medication Count Intake Note: Patient comes in for pill count to Tramadol 50 mg tablets, Reports pain 7/10. Allergies buprenorphine [From Belbuca] Allergy (Mild, Verified 04/09/23 11:42) Nausea gabapentin Allergy (Mild, Verified 04/09/23 11:42) Nausea latex Allergy (Mild, Verified 04/09/23 11:42) rash prednisone Allergy (Mild, Verified 04/09/23 11:42) rash pregabalin [From Lyrica] Allergy (Mild, Verified 04/09/23 11:42) rash hydroxyzine Allergy (Unknown, Verified 04/09/23 11:42) shotness of breath HPI HPI Comments History of Present Illness Details Maren is a very pleasant 62 year old female who presents to the office for follow up chronic pain and chronic opioid therapy management. Patient is prescribed Tramadol 50mg Q6H PRN. Patient arrived today with the expectation of having 24 pills, she presented 33 pills which were counted in the presence of two staff members and returned to the patient in the original prescription bottle. This demonstrates responsible attitude toward patient's opioid medications. Pain is reported today as 7/10 and last dose of pain medication was taken at 09:00 this morning. Pain is adequately managed on current opioid regimen. Patient denies any recent changes of chronic pain and states she is able to engage in activities of daily living with minimal interruption due to chronic pain. Patient denies side effects including somnolence, constipation, itching, dyspnea, rash, dizziness or weakness. She denies being on any antidepressants, she receives lorazepam which helps her with PTSD and nightmares. I will prescribe her tramadol with 1 refill on 04/15/2022. Her Narcan prescription also and I will send this prescription with refills. She no longer wants me to inject her left shoulder. She was doing physical therapy and exercises and she reports improvement in the left shoulder. ? She again reported severe discomfort in the right and less in the left SI joint. ? Unfortunately she reports that her psychiatrist does not see any reason but to continue lorazepam at minimal does.? It helps her to avoid nightmares , fear attacks and frequent awakening. ?She was prescribed elevated doses of Cymbalta,? her medication list currently does not demonstrate that she is on Cymbalta. In any case combination of tramadol and Cymbalta should be taken with caution due to risk of serotonin syndrome. She is status post failed SI joint fusion, she is a smoker and the ostial bridge did not develop in between sacral and iliac bone.? Original position of the fusion device was satisfactory.? The probable reason for the arthrodesis failure is smoking. We are waiting for her to be called with psychological evaluation from [facility].? After that if she is approved we will perform the trial on the right .? Currently only tell her that she may continue her tramadol as it was prescribed. [facility] Medical History COPD (chronic obstructive pulmonary disease) Cough Diabetic peripheral neuropathy Fibromyalgia Lumbar spondylosis Osteoarthritis of right hip Osteoarthritis, hip, bilateral Peripheral polyneuropathy Sacroiliac joint dysfunction of both sides Sacroiliac joint dysfunction of right side Sacroiliitis Shortness of breath Smoker Spondylosis, lumbar, with myelopathy Surgical History History of bariatric surgery Social History (Updated 01/22/21 @ 13:20 by Martha Vera [facility]) Household Members Other:: lives with partner/friend Alcohol intake: never Patient Tobacco Use Status: Current everyday Tobacco user Cigarettes Per Day: 10 Current occupation: disabled about 10 years due to fibromyalgia and low back pain Review of Systems Const All systems reviewed & are unremarkable except as noted in HPI and below ENT Reports Normal hearing present Neuro Reports Normal hearing present, Denies Abnormal speech present and Denies confusion Psych Denies confusion Physical Exam Vital Signs: Last Vital Signs Pulse 90 04/09/23 11:42 Resp 16 04/09/23 11:42 BP 108/56 L 04/09/23 11:42 Pulse Ox 96 04/09/23 11:42 Oxygen Delivery Method Room Air 04/09/23 11:42 BMI result Body Mass Index 31.7 Const General: No confusion Nutritional Appearance: overweight Orientation/consciousness: No confusion Limitations: no limitations HEENT Head: Yes normocephalic and Yes atraumatic Ears: hearing grossly normal bilaterally Eyes General: appearance normal, both eyes and all related structures Eyelids: Yes eyelids normal Pupils: Equal, round and reactive pupils present EOM: EOMs intact bilaterally Neck Neck: Yes normal visual inspection and Yes no JVD Resp Effort & Inspection: normal respiratory effort, able to speak in complete sentences and no audible wheezes Cardio Jugular venous distension: no JVD Back/Spine/Pelvis Other: Neuro General: No confusion Cranial nerves: Yes Equal, round and reactive pupils present and Yes Normal hearing present Speech: No Abnormal speech present Psych Appearance: grossly normal Mental Status: mental status grossly normal Speech and movement: Normal speech and movement present Affect: normal affect Attitude: cooperative Thought process: Normal thought process present Thought content: Normal thought content present Insight: Good insight present (Psych) Judgement: Good judgement present (Psych) Assessment & Plan Assessment & Plan (1) Sacroiliac joint dysfunction of right side: Code(s): M53.3 - Sacrococcygeal disorders, not elsewhere classified (2) Sacroiliac joint dysfunction of both sides: Code(s): M53.3 - Sacrococcygeal disorders, not elsewhere classified (3) Fibromyalgia: Code(s): M79.7 - Fibromyalgia (4) Sacroiliitis: Code(s): M46.1 - Sacroiliitis, not elsewhere classified (5) Osteoarthritis, hip, bilateral: Code(s): M16.0 - Bilateral primary osteoarthritis of hip (6) Spondylosis, lumbar, with myelopathy: Code(s): M47.16 - Other spondylosis with myelopathy, lumbar region (7) Peripheral polyneuropathy: Code(s): G62.9 - Polyneuropathy, unspecified (8) Diabetic peripheral neuropathy: Code(s): E11.42 - Type 2 diabetes mellitus with diabetic polyneuropathy Plan [facility] was reviewed and without concerns. No obvious signs of diversion, abuse or misuse of the opioid medications. Will send in prescription for Tramadol 50mg tabs, take one tab Q6H PRN 1RF with an advanced date of 04/15/2022. Looks like she no longer receives Cymbalta. Nevertheless we need to discuss this next time she is here. Will send a new prescription of the Narcan/naloxone. She states the old one . Next appointment is in 2 months. Medications: Refilled tramadol 50 mg PO Q6H PRN 120 tabs 1RF pain 30 days naloxone 4 mg/actuation spray 1 dose into ONE nostril; alternate nostrils w each dose until help arrives 4 mg intranasal Q2M PRN 2 ea 0RF opioid overdose 1 day Coding Level of Care Code Est Pt Level 3 (13139) Diagnoses Sacroiliac joint dysfunction of right side M53.3 Sacroiliac joint dysfunction of both sides M53.3 Fibromyalgia M79.7 Sacroiliitis M46.1 Osteoarthritis, hip, bilateral M16.0 Spondylosis, lumbar, with myelopathy M47.16 Peripheral polyneuropathy G62.9 Diabetic peripheral neuropathy E11.42
[2023-04-09 11:42] VITALS: BP 108/56; PULSE 90; RESP 16; O2SAT 96; BMI 31.7
== END 2023-04-09 11:51 | disposition home or self-care (01) ==
PROVIDERS: PCP Nurse Practitioner Family; Visit Provider Anesthesiology
DX: M53.3 Sacrococcygeal disorders, not elsewhere classified (principal); M79.7 Fibromyalgia; M46.1 Sacroiliitis, not elsewhere classified; M16.0 Bilateral primary osteoarthritis of hip; M47.16 Other spondylosis with myelopathy, lumbar region; G62.9 Polyneuropathy, unspecified; E11.42 Type 2 diabetes mellitus with diabetic polyneuropathy
CPT/HCPCS: 99213

== ENCOUNTER → 2023-04-09 11:29 | Outpatient (BNVA) | payer MEDICARE, MEDICAID, SELFPAY | PROVIDERS: PCP Nurse Practitioner Family; Visit Provider Anesthesiology | DX: Z51.81 Encounter for therapeutic drug level monitoring (principal); F11.20 Opioid dependence, uncomplicated; M53.3 Sacrococcygeal disorders, not elsewhere classified; M79.7 Fibromyalgia; M46.1 Sacroiliitis, not elsewhere classified; M16.0 Bilateral primary osteoarthritis of hip; M47.16 Other spondylosis with myelopathy, lumbar region; E11.42 Type 2 diabetes mellitus with diabetic polyneuropathy; G62.9 Polyneuropathy, unspecified | CPT/HCPCS: 99212 ==

== ENCOUNTER 2023-06-04 11:19 | Outpatient (AMB) | payer MEDICARE, MEDICAID, SELFPAY ==
--- NOTE | 2023-06-04 11:38 | MHC.OFFVIS ---
Intake Vital Signs 06/04/23 11:39 Height 5 ft 7 in Weight 200 lb 6 oz BMI 31.4 BP 107/57 L Blood Pressure Location Lt brachial Position Sitting Respiration 18 Pulse 78 Pulse Source Pulse Oximeter Pulse Oximetry (%) 98 Oxygen Delivery Method Room Air Intake Visit Reasons: Pill count Allergies buprenorphine [From Belbuca] Allergy (Mild, Verified 06/04/23 11:38) Nausea gabapentin Allergy (Mild, Verified 06/04/23 11:38) Nausea latex Allergy (Mild, Verified 06/04/23 11:38) rash prednisone Allergy (Mild, Verified 06/04/23 11:38) rash pregabalin [From Lyrica] Allergy (Mild, Verified 06/04/23 11:38) rash hydroxyzine Allergy (Unknown, Verified 06/04/23 11:38) shotness of breath HPI HPI Comments History of Present Illness Details Maren is a very pleasant 62 year old female who presents to the office for follow up chronic pain and chronic opioid therapy management. She has additional complaints today on consequences of the pneumonia she suffered during the wintertime. She wants me to refer her to pulmonology. I will make a referral today. Patient is prescribed Tramadol 50mg Q6H PRN. We performed a pill count today and she reports that due to pneumonia she has no energy and spends a lot of time in bed sleeping. She reports that because of that she has excessive the medications. I told her that the medication is written for her as needed and she does not have to take all the medications as they were prescribed to her. Her pill count is correct therefore today she is supposed to have 44 pills in her possession she has 58 pills in her possession. Pain is reported today as 7/10 and last dose of pain medication was taken at 09:00 this morning. Patient denies side effects including somnolence, constipation, itching, dyspnea, rash, dizziness or weakness. She denies being on any antidepressants, she receives lorazepam which helps her with PTSD and nightmares. I will prescribe her tramadol with 1 refill on 06/15/2023. She has prescription of Narcan ? She again reported severe discomfort in the right and less in the left SI joint. ? Unfortunately she reports that her psychiatrist does not see any reason but to continue lorazepam at minimal does.? It helps her to avoid nightmares , fear attacks and frequent awakening. ?She was prescribed elevated doses of Cymbalta,? her medication list currently does not demonstrate that she is on Cymbalta. In any case combination of tramadol and Cymbalta should be taken with caution due to risk of serotonin syndrome. She is status post failed SI joint fusion, she is a smoker and the ostial bridge did not develop in between sacral and iliac bone.? Original position of the fusion device was satisfactory.? The probable reason for the arthrodesis failure is smoking. We are waiting for her to be called with psychological evaluation from [facility].? After that if she is approved we will perform the trial on the right .? Currently only tell her that she may continue her tramadol as it was prescribed. [facility] Medical History COPD (chronic obstructive pulmonary disease) Cough Diabetic peripheral neuropathy Fibromyalgia Lumbar spondylosis Osteoarthritis of right hip Osteoarthritis, hip, bilateral Peripheral polyneuropathy Sacroiliac joint dysfunction of both sides Sacroiliac joint dysfunction of right side Sacroiliitis Shortness of breath Smoker Spondylosis, lumbar, with myelopathy Surgical History History of bariatric surgery Social History (Updated 01/22/21 @ 13:20 by Martha Vera [facility]) Household Members Other:: lives with partner/friend Alcohol intake: never Patient Tobacco Use Status: Current everyday Tobacco user Cigarettes Per Day: 10 Current occupation: disabled about 10 years due to fibromyalgia and low back pain Review of Systems Const All systems reviewed & are unremarkable except as noted in HPI and below ENT Reports Normal hearing present Neuro Reports Normal hearing present, Denies Abnormal speech present and Denies confusion Psych Denies confusion Physical Exam Vital Signs: Last Vital Signs Pulse 78 06/04/23 11:39 Resp 18 06/04/23 11:39 BP 107/57 L 06/04/23 11:39 Pulse Ox 98 06/04/23 11:39 Oxygen Delivery Method Room Air 06/04/23 11:39 BMI result Body Mass Index 31.4 Const General: No confusion Nutritional Appearance: overweight Orientation/consciousness: No confusion Limitations: no limitations HEENT Head: Yes normocephalic and Yes atraumatic Ears: hearing grossly normal bilaterally Eyes General: appearance normal, both eyes and all related structures Eyelids: Yes eyelids normal Pupils: Equal, round and reactive pupils present EOM: EOMs intact bilaterally Neck Neck: Yes normal visual inspection and Yes no JVD Resp Effort & Inspection: normal respiratory effort, able to speak in complete sentences and no audible wheezes Cardio Jugular venous distension: no JVD Back/Spine/Pelvis Other: Neuro General: No confusion Cranial nerves: Yes Equal, round and reactive pupils present and Yes Normal hearing present Speech: No Abnormal speech present Psych Appearance: grossly normal Mental Status: mental status grossly normal Speech and movement: Normal speech and movement present Affect: normal affect Attitude: cooperative Thought process: Normal thought process present Thought content: Normal thought content present Insight: Good insight present (Psych) Judgement: Good judgement present (Psych) Assessment & Plan Assessment & Plan (1) Sacroiliac joint dysfunction of right side: Code(s): M53.3 - Sacrococcygeal disorders, not elsewhere classified (2) Sacroiliac joint dysfunction of both sides: Code(s): M53.3 - Sacrococcygeal disorders, not elsewhere classified (3) Fibromyalgia: Code(s): M79.7 - Fibromyalgia (4) Sacroiliitis: Code(s): M46.1 - Sacroiliitis, not elsewhere classified (5) Osteoarthritis, hip, bilateral: Code(s): M16.0 - Bilateral primary osteoarthritis of hip (6) Spondylosis, lumbar, with myelopathy: Code(s): M47.16 - Other spondylosis with myelopathy, lumbar region (7) Peripheral polyneuropathy: Code(s): G62.9 - Polyneuropathy, unspecified (8) Diabetic peripheral neuropathy: Code(s): E11.42 - Type 2 diabetes mellitus with diabetic polyneuropathy (9) COPD (chronic obstructive pulmonary disease): Code(s): J44.9 - Chronic obstructive pulmonary disease, unspecified (10) Cough: Code(s): R05.9 - Cough, unspecified (11) Smoker: Code(s): F17.200 - Nicotine dependence, unspecified, uncomplicated (12) Shortness of breath: Code(s): R06.02 - Shortness of breath Plan [place] was reviewed and without concerns. No obvious signs of diversion, abuse or misuse of the opioid medications. Will send in prescription for Tramadol 50mg tabs, take one tab Q6H PRN 1RF with an advanced date of 06/14/2022 Looks like she no longer receives Cymbalta. Nevertheless we need to discuss this next time she is here. Her naltrexone was prescribed 04/09/2023. I will refer her to our pulmonology to treat the consequences of her pneumonia. Next appointment is in 2 months. Orders: Referrals Pulmonary Medicine Referral F17.200 - Nicotine dependence, unspecified, uncomplicated, J44.9 - Chronic obstructive pulmonary disease, unspecified, R05.9 - Cough, unspecified, R06.02 - Shortness of breath Medications: Refilled tramadol 50 mg PO Q6H PRN 120 tabs 1RF pain 30 days Coding Level of Care Code Est Pt Level 3 (25374) Diagnoses Sacroiliac joint dysfunction of right side M53.3 Sacroiliac joint dysfunction of both sides M53.3 Fibromyalgia M79.7 Sacroiliitis M46.1 Osteoarthritis, hip, bilateral M16.0 Spondylosis, lumbar, with myelopathy M47.16 Peripheral polyneuropathy G62.9 Diabetic peripheral neuropathy E11.42 COPD (chronic obstructive pulmonary disease) J44.9 Cough R05.9 Smoker F17.200 Shortness of breath R06.02
[2023-06-04 11:39] VITALS: BP 107/57; PULSE 78; RESP 18; O2SAT 98; BMI 31.4
== END 2023-06-04 11:44 | disposition home or self-care (01) ==
PROVIDERS: PCP Nurse Practitioner Family; Visit Provider Anesthesiology
DX: M53.3 Sacrococcygeal disorders, not elsewhere classified (principal); M79.7 Fibromyalgia; M46.1 Sacroiliitis, not elsewhere classified; M16.0 Bilateral primary osteoarthritis of hip; M47.16 Other spondylosis with myelopathy, lumbar region; G62.9 Polyneuropathy, unspecified; E11.42 Type 2 diabetes mellitus with diabetic polyneuropathy; J44.9 Chronic obstructive pulmonary disease, unspecified; R05.9 Cough, unspecified; F17.200 Nicotine dependence, unspecified, uncomplicated; R06.02 Shortness of breath
CPT/HCPCS: 99213

== ENCOUNTER → 2023-06-04 11:24 | Outpatient (BNVA) | payer MEDICARE, MEDICAID, SELFPAY | PROVIDERS: PCP Nurse Practitioner Family; Visit Provider Anesthesiology | DX: M53.3 Sacrococcygeal disorders, not elsewhere classified (principal); M79.7 Fibromyalgia; M46.1 Sacroiliitis, not elsewhere classified; M16.0 Bilateral primary osteoarthritis of hip; M47.16 Other spondylosis with myelopathy, lumbar region; G62.9 Polyneuropathy, unspecified; E11.42 Type 2 diabetes mellitus with diabetic polyneuropathy; J44.9 Chronic obstructive pulmonary disease, unspecified; R05.9 Cough, unspecified; F17.200 Nicotine dependence, unspecified, uncomplicated; R06.02 Shortness of breath | CPT/HCPCS: 99212 ==

== ENCOUNTER 2023-07-14 11:10 | Outpatient (AMB) | payer MEDICARE, MEDICAID, SELFPAY ==
[2023-07-14 11:23] VITALS: BP 102/68; PULSE 86; O2SAT 97; BMI 32.3
--- NOTE | 2023-07-14 11:23 | MHC.OFFVIS ---
Vital Signs 07/14/23 11:23 Height 5 ft 7 in Weight 206 lb BMI 32.3 BP 102/68 Blood Pressure Location Lt brachial Position Sitting Pulse 86 Pulse Source Pulse Oximeter Pulse Oximetry (%) 97 Oxygen Delivery Method Room Air Intake Visit Reasons: copd Intake Note: pt is here for follow up and but she states she had a collapsed lung of left lower lobe, plaque and air space, had chest tube and that is taken out, and today she states she is still short of breath, walking distances. Night Filler Required: No Allergies buprenorphine [From Belbuca] Allergy (Mild, Verified 07/14/23 11:47) Nausea gabapentin Allergy (Mild, Verified 07/14/23 11:47) Nausea latex Allergy (Mild, Verified 07/14/23 11:47) rash prednisone Allergy (Mild, Verified 07/14/23 11:47) rash pregabalin [From Lyrica] Allergy (Mild, Verified 07/14/23 11:47) rash hydroxyzine Allergy (Unknown, Verified 07/14/23 11:47) shotness of breath Medication List - Last Reconciled 07/14/23 by Javier Bains MD albuterol sulfate 90 mcg/actuation 2 inhalations inhalation Q6-8H PRN albuterol sulfate 2.5 mg inhalation Q6H PRN amantadine HCl 100 mg PO DAILY baclofen 10 mg PO BID 30 days budesonide-formoterol 80-4.5 mcg/actuation (Symbicort) inhalation chlorhexidine gluconate 0.12% mL PO BID clonidine HCl 0.1 mg PO TID duloxetine 40 mg PO BID 30 days fluticasone propionate 50 mcg/actuation 1 spray intranasal BID folic acid 1 mg PO DAILY lidocaine 5% 1 patch topical DAILY loratadine 10 mg PO DAILY lorazepam 2.5 mg PO BEDTIME naloxone 4 mg/actuation 4 mg intranasal Q2M PRN 1 day nicotine 1 patch transdermal DAILY nystatin (Nyamyc) topical BID PRN pantoprazole 40 mg PO DAILY tramadol 50 mg PO Q6H PRN 30 days walker (Ultra-Light Rollator misc) As directed Do you need a note to return to daycare/school/sports/work: No HPI HPI copd: Details: THIS 63 YEARS OLD FEMALE IS COMING TO SEE ME AFTER A FEW YEARS. 3 WEEKS AGO SHE HAD SUDDEN PAIN IN THE LEFT LOWER CHEST, CHEST X-RAY SHOWING PNEUMOTHORAX. SHE WAS ADMITTED AT [facility] AND TREATED WITH PLACEMENT OF A CHEST TUBE, FOR 5 DAYS. AFTER MOVING THE CHEST TUBES SHE DID HAVE SOME RESIDUAL ATELECTASIS. SHE UNDERWENT BRONCHOSCOPY WITH THE SUCTIONING OF SOME MUCUS, AND WAS TOLD THAT THE LOWER LOBE HAD OPENED UP. SHE COMES TODAY FOR FOLLOW-UP. CLAIMS THAT SHE IS BREATHING FAIRLY GOOD EXCEPT THAT SHE GETS SHORT OF BREATH WHEN SHE WALKS FROM THE PARKING LOT TO THE OFFICE. SHE HAS ONLY. MINIMAL RESIDUAL COUGH SHE IS USING HER INHALERS WELL ALBUTEROL SOLUTION IN THE NEBULIZER P.R.N.. SHE IS ON NICOTINE PATCH AND HAS CUT DOWN SMOKING TO JUST A FEW CIGARETTES A DAY. [facility] Medical History (Updated 07/14/23 @ 11:58 by Javier Bains MD) Pneumothorax COPD (chronic obstructive pulmonary disease) Cough Smoker Shortness of breath Osteoarthritis of right hip Sacroiliac joint dysfunction of right side Sacroiliac joint dysfunction of both sides Lumbar spondylosis Fibromyalgia Diabetic peripheral neuropathy Peripheral polyneuropathy Spondylosis, lumbar, with myelopathy Osteoarthritis, hip, bilateral Sacroiliitis Surgical History History of bariatric surgery Social History Household Members Other:: lives with partner/friend Alcohol intake: never Patient Tobacco Use Status: Former Tobacco user Cigarettes Per Day: 10 Current occupation: disabled about 10 years due to fibromyalgia and low back pain Review of Systems Const All systems reviewed & are unremarkable except as noted in HPI and below Eyes Reports no additional complaints ENT Reports no additional complaints Card Denies chest pain, Denies irregular heart rhythm and Denies leg edema Resp Reports as per HPI GI Reports heartburn (CONTROLLED WITH MED) Reports no additional complaints Musc Reports back pain and Reports arthralgias (MILD) Skin/Breast Reports system reviewed and no additional complaints, except as documented Neuro Reports no additional complaints Psych Reports no additional complaints Physical Exam Vital Signs: Last Vital Signs Pulse 86 07/14/23 11:23 BP 102/68 07/14/23 11:23 Pulse Ox 97 07/14/23 11:23 Oxygen Delivery Method Room Air 07/14/23 11:23 BMI result Body Mass Index 32.3 Const General: comfortable, no acute distress, alert and awake Orientation/consciousness: patient oriented x3 HEENT Head: Yes normal to inspection General nose exam: No nasal polyps present and No nasal discharge present Face and sinus: Yes sinuses nontender Mouth: oropharynx normal Throat: Yes posterior oropharynx normal Eyes General: appearance normal, both eyes and all related structures Neck Neck: Yes normal visual inspection, Yes no lymphadenopathy, Yes trachea midline and Yes no JVD Thyroid: Thyroid normal Chest Chest palpation & inspection: normal inspection of the chest, normal palpation of entire chest wall and no tenderness Resp Other: PERCUSSION NOTE RESONANT, BREATH SOUNDS ARE VERY DISTANT ON BOTH SIDES, AND SOMEWHAT MORE DECREASED OVER THE LEFT LOWER LOBE AREA. NO WHEEZES OR CREPITATIONS ARE HEARD. Cardio Palpation: normal PMI Rate: regular rate Rhythm: regular rhythm Heart sounds: no gallops and no murmurs GI Palpation (GI): Soft to palpation, nontender, No hepatosplenomegaly present and no masses Auscultation: normal bowel sounds Back/Spine/Pelvis Thoracic/Lumbar Spine: thoracic and lumbar spine normal to inspection Skin General skin exam: no rashes or lesions noted Neuro General: patient oriented x3 and no focal motor deficits Cranial nerves: Yes CN's II-XII intact bilaterally Extrem General: Yes normal to inspection, Yes no clubbing, cyanosis or edema and Yes no calf tenderness Psych Appearance: grossly normal and well kempt Speech and movement: Normal speech and movement present Assessment & Plan Assessment & Plan (1) COPD (chronic obstructive pulmonary disease): Comment: SHE HAS LONGSTANDING CHRONIC OBSTRUCTIVE PULMONARY DISEASE, RELATED TO HER SMOKING. AT PRESENT SEEMS TO BE CONTROLLED AND STABLE. BUT BREATH SOUNDS ARE QUITE DISTANT WITH PROLONGED EXPIRATORY PHASE. Code(s): J44.9 - Chronic obstructive pulmonary disease, unspecified Category: Medical Plan: SYMBICORT 80-4.52 PUFFS B.I.D. DUONEB SOLUTION IN THE NEBULIZER Q 4-6 HOURS P.R.N.. VENTOLIN 2 PUFFS Q 4-6 HOURS P.R.N. WHEN OUTDOORS (2) Smoker: Comment: PATIENT HAS LONGSTANDING HISTORY OF SMOKING. CURRENTLY NICOTINE PATCH ONCE A DAY , STATES THAT CIGARETTES ARE DOWN TO 5-7 PER DAY, AND SHE IS TRYING TO QUIT SOON POSSIBLE. Code(s): F17.200 - Nicotine dependence, unspecified, uncomplicated Category: Social Hx Plan: COUNSELED TO QUIT COMPLETELY. CONTINUE USING NICOTINE PATCH 1 DAILY (3) Pneumothorax: Comment: RECENT DIAGNOSIS OF PNEUMOTHORAX. PATIENT TREATED AT [facility] WITH THE CHEST DUE FOR 5 DAYS. FOLLOWING THAT HAD SOME RESIDUAL ATELECTASIS OF THE LEFT LOWER LOBE. SHE DID HAVE ENDOSCOPIC EXAMINATION AND SUCTIONING OF THE MUCUS. Code(s): J93.9 - Pneumothorax, unspecified Category: Medical Plan: I ADVISED HER TO KEEP ON DOING DEEP BREATHING EXERCISES AT LEAST 3 TIMES A DAY. SHE DOES HAVE INCENTIVE SPIROMETRY DEVICE Coding Level of Care Code Est Pt Level 4 (86859) Diagnoses COPD (chronic obstructive pulmonary disease) J44.9 Smoker F17.200 Pneumothorax J93.9
== END 2023-07-14 11:51 | disposition home or self-care (01) ==
PROVIDERS: PCP Nurse Practitioner Family; Visit Provider Internal Medicine
DX: J44.9 Chronic obstructive pulmonary disease, unspecified (principal); F17.200 Nicotine dependence, unspecified, uncomplicated; J93.9 Pneumothorax, unspecified
CPT/HCPCS: 99214

== ENCOUNTER → 2023-07-14 11:10 | Outpatient (BNVA) | payer MEDICARE, MEDICAID, SELFPAY | PROVIDERS: PCP Nurse Practitioner Family; Visit Provider Internal Medicine | DX: J44.9 Chronic obstructive pulmonary disease, unspecified (principal); J93.9 Pneumothorax, unspecified; F17.210 Nicotine dependence, cigarettes, uncomplicated | CPT/HCPCS: 99212 ==

== ENCOUNTER 2023-08-07 09:13 | Outpatient (AMB) | payer MEDICARE, MEDICAID, SELFPAY ==
--- NOTE | 2023-08-07 09:26 | MHC.OFFVIS ---
Vital Signs 08/07/23 09:39 Height 5 ft 7 in Weight 212 lb BMI 33.2 BP 110/70 Blood Pressure Location Lt brachial Position Sitting Respiration 16 Pulse 88 Pulse Source Pulse Oximeter Pulse Oximetry (%) 97 Oxygen Delivery Method Room Air Intake Visit Reasons: PILL COUNT Intake Note: Patient comes in for pill count. Reports pain 8/10. Allergies buprenorphine [From Belbuca] Allergy (Mild, Verified 08/07/23 09:39) Nausea gabapentin Allergy (Mild, Verified 08/07/23 09:39) Nausea latex Allergy (Mild, Verified 08/07/23 09:39) rash prednisone Allergy (Mild, Verified 08/07/23 09:39) rash pregabalin [From Lyrica] Allergy (Mild, Verified 08/07/23 09:39) rash hydroxyzine Allergy (Unknown, Verified 08/07/23 09:39) shotness of breath HPI Comments Details: Maren is a very pleasant 62 year old female who presents to the office for follow up chronic pain and chronic opioid therapy management. She was admitted for severe pneumonia with pleuritis and pleural effusion to [facility]. She was under observation therefore several days. She was on opioid medication then, however she also accepted the script from hospitalist of hydromorphone. Therefore she is in the bridge of her contract. The risk of opioid addiction last time was very severe. She will be suspended indefinitely in this opioid program. For the purpose of tapering her opioid dose down will prescribe for her the opioids, the pill count is correct she presented with 96 pills in her possession. She supposed to have 96 pills in her possession. Her pain level today is 8/10. I agreed to continue prescribing her duloxetine as well as baclofen. We briefly discussed today possibility of treating her pain with sacroiliac joint stimulation. In the past we were not able to proceed for the trial of cure on X PNS because of the difficulties with psychological evaluation. She has her psychologist and psychiatrist. We will give her an example of psychological evaluation report and if her psychologist and psychiatrist will be able to provide us the clearance for the procedure I will be happy to schedule her for diagnostic trial of cure on X PNS. ? She again reported severe discomfort in the right and less in the left SI joint. ? Unfortunately she reports that her psychiatrist does not see any reason but to continue lorazepam at minimal does.? It helps her to avoid nightmares , fear attacks and frequent awakening. ?She was prescribed elevated doses of Cymbalta,? her medication list currently does not demonstrate that she is on Cymbalta. In any case combination of tramadol and Cymbalta should be taken with caution due to risk of serotonin syndrome. She is status post failed SI joint fusion, she is a smoker and the ostial bridge did not develop in between sacral and iliac bone.? Original position of the fusion device was satisfactory.? The probable reason for the arthrodesis failure is smoking. [facility] Medical History (Updated 07/14/23 @ 11:58 by Javier Bains MD) Pneumothorax COPD (chronic obstructive pulmonary disease) Cough Smoker Shortness of breath Osteoarthritis of right hip Sacroiliac joint dysfunction of right side Sacroiliac joint dysfunction of both sides Lumbar spondylosis Fibromyalgia Diabetic peripheral neuropathy Peripheral polyneuropathy Spondylosis, lumbar, with myelopathy Osteoarthritis, hip, bilateral Sacroiliitis Surgical History History of bariatric surgery Social History Household Members Other:: lives with partner/friend Alcohol intake: never Patient Tobacco Use Status: Former Tobacco user Cigarettes Per Day: 10 Current occupation: disabled about 10 years due to fibromyalgia and low back pain Review of Systems Const All systems reviewed & are unremarkable except as noted in HPI and below ENT Reports Normal hearing present Neuro Reports Normal hearing present, Denies Abnormal speech present and Denies confusion Psych Denies confusion Physical Exam Vital Signs: Last Vital Signs Pulse 88 08/07/23 09:39 Resp 16 08/07/23 09:39 BP 110/70 08/07/23 09:39 Pulse Ox 97 08/07/23 09:39 Oxygen Delivery Method Room Air 08/07/23 09:39 BMI result Body Mass Index 33.2 Const General: No confusion Nutritional Appearance: overweight Orientation/consciousness: No confusion Limitations: no limitations HEENT Head: Yes normocephalic and Yes atraumatic Ears: hearing grossly normal bilaterally General nose exam: No nasal polyps present and No nasal discharge present Face and sinus: Yes sinuses nontender Mouth: oropharynx normal Throat: Yes posterior oropharynx normal Eyes General: appearance normal, both eyes and all related structures Eyelids: Yes eyelids normal Pupils: Equal, round and reactive pupils present EOM: EOMs intact bilaterally Neck Neck: Yes normal visual inspection, Yes no lymphadenopathy, Yes trachea midline and Yes no JVD Thyroid: Thyroid normal Resp Effort & Inspection: normal respiratory effort, able to speak in complete sentences and no audible wheezes Cardio Jugular venous distension: no JVD Back/Spine/Pelvis Other: Neuro General: No confusion Cranial nerves: Yes Equal, round and reactive pupils present and Yes Normal hearing present Speech: No Abnormal speech present Psych Appearance: grossly normal Mental Status: mental status grossly normal Speech and movement: Normal speech and movement present Affect: normal affect Attitude: cooperative Thought process: Normal thought process present Thought content: Normal thought content present Insight: Good insight present (Psych) Judgement: Good judgement present (Psych) Assessment & Plan Assessment & Plan (1) Diabetic peripheral neuropathy: Code(s): E11.42 - Type 2 diabetes mellitus with diabetic polyneuropathy Category: Medical (2) Osteoarthritis of right hip: Code(s): M16.11 - Unilateral primary osteoarthritis, right hip Category: Medical (3) Sacroiliac joint dysfunction of right side: Code(s): M53.3 - Sacrococcygeal disorders, not elsewhere classified Category: Medical (4) Sacroiliac joint dysfunction of both sides: Code(s): M53.3 - Sacrococcygeal disorders, not elsewhere classified Category: Medical (5) Fibromyalgia: Code(s): M79.7 - Fibromyalgia Category: Medical (6) Lumbar spondylosis: Code(s): M47.816 - Spondylosis without myelopathy or radiculopathy, lumbar region Category: Medical (7) Sacroiliitis: Code(s): M46.1 - Sacroiliitis, not elsewhere classified Category: Medical (8) Osteoarthritis, hip, bilateral: Code(s): M16.0 - Bilateral primary osteoarthritis of hip Category: Medical Plan In the order to continue with her duloxetine I need to schedule her for comprehensive metabolic panel. She went for the study and ALT and AST seem to be appropriate normal. I will continue this medication I will see her in 1 month. I will send her her last prescription of tramadol today. If she will present for me psychological evaluation we will be able to consider a trial of Curonix PNS. Because she was not bridge of her contract and she is high risk for opioid addiction unfortunately this office will not be able to prescribe tramadol for her. At this time I can offer her either to taper her tramadol down and consider possibly escalation of duloxetine with me or maybe find a primary care provider who will be able to prescribe tramadol for her. Option of the treatment of her pain with cure on X PNS was discussed with the patient. We need her psychologist to provide a psychological evaluation in the order to proceed with the trial of Curonix PNS. Orders: Orders Comprehensive Met. Panel Today E11.42 - Type 2 diabetes mellitus with diabetic polyneuropathy Medications: Refilled tramadol 50 mg PO Q6H 30 days PRN 120 tabs 2RF pain Patient Instructions: I here by testify that I spent 30 minutes in conversation with this patient as well as planning her care and organizing this note. Coding Level of Care Code Est Pt Level 4 (41864) Diagnoses Diabetic peripheral neuropathy E11.42 Osteoarthritis of right hip M16.11 Sacroiliac joint dysfunction of right side M53.3 Sacroiliac joint dysfunction of both sides M53.3 Fibromyalgia M79.7 Lumbar spondylosis M47.816 Sacroiliitis M46.1 Osteoarthritis, hip, bilateral M16.0
[2023-08-07 09:39] VITALS: BP 110/70; PULSE 88; RESP 16; O2SAT 97; BMI 33.2
== END 2023-08-07 10:03 | disposition home or self-care (01) ==
PROVIDERS: PCP Nurse Practitioner Family; Supervising Provider Anesthesiology; Visit Provider Anesthesiology
DX: E11.42 Type 2 diabetes mellitus with diabetic polyneuropathy (principal); M16.11 Unilateral primary osteoarthritis, right hip; M53.3 Sacrococcygeal disorders, not elsewhere classified; M79.7 Fibromyalgia; M47.816 Spondylosis without myelopathy or radiculopathy, lumbar region; M46.1 Sacroiliitis, not elsewhere classified; M16.0 Bilateral primary osteoarthritis of hip
CPT/HCPCS: 99214

== ENCOUNTER 2023-08-07 09:13 | Outpatient (REF) | payer MEDICARE, SELFPAY ==
[2023-08-07 12:00] LABS: Alanine Aminotransferase 14 U/L (0-31); Albumin Level 3.8 g/dL (3.5-5.0); Alkaline Phosphatase 73 U/L (39-117); Anion Gap 11 (12-20); Aspartate Amino Transferase 18 U/L (5-31); Bilirubin Total 0.3 mg/dL (0.0-1.0); Blood Urea Nitrogen 10 mg/dL (9-16); Carbon Dioxide 28 mmol/L (22-29); Chloride 108 mmol/L (96-108); Estimated Glomerular Filt Rate > 60; Glucose Random 82 mg/dL (60-115); Potassium 4.6 mmol/L (3.3-5.1); Sodium 142 mmol/L (135-145); Total Protein 6.2 g/dL (6.5-8.0)
== END 2023-08-07 09:14 | disposition home or self-care (01) ==
LOC: HO.LAB 09:13
PROVIDERS: PCP Nurse Practitioner Family; Visit Provider Anesthesiology
DX: M53.3 Sacrococcygeal disorders, not elsewhere classified (principal); M79.7 Fibromyalgia; M47.816 Spondylosis without myelopathy or radiculopathy, lumbar region; M46.1 Sacroiliitis, not elsewhere classified; M16.0 Bilateral primary osteoarthritis of hip; E11.42 Type 2 diabetes mellitus with diabetic polyneuropathy
CPT/HCPCS: 36415; 80053; 99212

== ENCOUNTER 2023-09-04 11:34 | Outpatient (AMB) | payer MEDICARE, MEDICAID, SELFPAY ==
--- NOTE | 2023-09-04 11:36 | A.OFFVIS_ITS ---
Vital Signs 09/04/23 11:54 Height 5 ft 7 in Weight 214 lb 6 oz BMI 33.6 BP 136/78 Blood Pressure Location Lt brachial Position Sitting Respiration 16 Pulse 89 Pulse Source Pulse Oximeter Pulse Oximetry (%) 98 Oxygen Delivery Method Room Air Intake Visit Reasons: PILL COUNT Intake Note: Patient comes in for pill count. Reports pain 09/23. Allergies buprenorphine [From Belbuca] Allergy (Mild, Verified 09/04/23 11:54) Nausea gabapentin Allergy (Mild, Verified 09/04/23 11:54) Nausea latex Allergy (Mild, Verified 09/04/23 11:54) rash prednisone Allergy (Mild, Verified 09/04/23 11:54) rash pregabalin [From Lyrica] Allergy (Mild, Verified 09/04/23 11:54) rash hydroxyzine Allergy (Unknown, Verified 09/04/23 11:54) shotness of breath HPI Comments Details: Maren is a very pleasant 62 year old female who presents to the office for [facility] low up chronic pain and chronic opioid therapy management. She was admitted for severe pneumonia with pleuritis and pleural effusion to [facility]. She was under observation there for several days. She was on opioid medication then, she also accepted the script from hospitalist of hydromorphone. it was a breach of the contract The risk of opioid addiction last time was very severe. She will be suspended indefinitely in this opioid program. She is tapering her opioid down. I will continue to prescribe her baclofen and her duloxetine. We discussed further treatment. I need psychological evaluation to prepare her for the PNS cure on X of the sacroiliac joint stimulation. She has to provide her psychiatrist the psychological ablation template then we will try peripheral nerve stimulation stim wave. ?She was prescribed elevated doses of Cymbalta,? her medication list currently does not demonstrate that she is on Cymbalta. In any case combination of tramadol and Cymbalta should be taken with caution due to risk of serotonin syndrome. She is status post failed SI joint fusion, she is a smoker and the ostial bridge did not develop in between sacral and iliac bone.? Original position of the fusion device was satisfactory.? She stated that she stopped smoking. [facility] Medical History (Updated 07/14/23 @ 11:58 by Javier Bains MD) Pneumothorax COPD (chronic obstructive pulmonary disease) Cough Smoker Shortness of breath Osteoarthritis of right hip Sacroiliac joint dysfunction of right side Sacroiliac joint dysfunction of both sides Lumbar spondylosis Fibromyalgia Diabetic peripheral neuropathy Peripheral polyneuropathy Spondylosis, lumbar, with myelopathy Osteoarthritis, hip, bilateral Sacroiliitis Surgical History History of bariatric surgery Social History Household Members Other:: lives with partner/friend Alcohol intake: never Patient Tobacco Use Status: Former Tobacco user Cigarettes Per Day: 10 Current occupation: disabled about 10 years due to fibromyalgia and low back pain Review of Systems Const All systems reviewed & are unremarkable except as noted in HPI and below ENT Reports Normal hearing present Neuro Reports Normal hearing present, Denies Abnormal speech present and Denies confusion Psych Denies confusion Physical Exam Vital Signs: Last Vital Signs Pulse 89 09/04/23 11:54 Resp 16 09/04/23 11:54 BP 136/78 09/04/23 11:54 Pulse Ox 98 09/04/23 11:54 Oxygen Delivery Method Room Air 09/04/23 11:54 BMI result Body Mass Index 33.6 Const General: No confusion Nutritional Appearance: overweight Orientation/consciousness: No confusion Limitations: no limitations HEENT Head: Yes normocephalic and Yes atraumatic Ears: hearing grossly normal bilaterally General nose exam: No nasal polyps present and No nasal discharge present Face and sinus: Yes sinuses nontender Mouth: oropharynx normal Throat: Yes posterior oropharynx normal Eyes General: appearance normal, both eyes and all related structures Eyelids: Yes eyelids normal Pupils: Equal, round and reactive pupils present EOM: EOMs intact bilaterally Neck Neck: Yes normal visual inspection, Yes no lymphadenopathy, Yes trachea midline and Yes no JVD Thyroid: Thyroid normal Resp Effort & Inspection: normal respiratory effort, able to speak in complete sentences and no audible wheezes Cardio Jugular venous distension: no JVD Back/Spine/Pelvis Other: Neuro General: No confusion Cranial nerves: Yes Equal, round and reactive pupils present and Yes Normal hearing present Speech: No Abnormal speech present Psych Appearance: grossly normal Mental Status: mental status grossly normal Speech and movement: Normal speech and movement present Affect: normal affect Attitude: cooperative Thought process: Normal thought process present Thought content: Normal thought content present Insight: Good insight present (Psych) Judgement: Good judgement present (Psych) Assessment & Plan Assessment & Plan (1) Diabetic peripheral neuropathy: Code(s): E11.42 - Type 2 diabetes mellitus with diabetic polyneuropathy Category: Medical (2) Osteoarthritis of right hip: Code(s): M16.11 - Unilateral primary osteoarthritis, right hip Category: Medical (3) Sacroiliac joint dysfunction of right side: Code(s): M53.3 - Sacrococcygeal disorders, not elsewhere classified Category: Medical (4) Sacroiliac joint dysfunction of both sides: Code(s): M53.3 - Sacrococcygeal disorders, not elsewhere classified Category: Medical (5) Fibromyalgia: Code(s): M79.7 - Fibromyalgia Category: Medical (6) Lumbar spondylosis: Code(s): M47.816 - Spondylosis without myelopathy or radiculopathy, lumbar region Category: Medical (7) Sacroiliitis: Code(s): M46.1 - Sacroiliitis, not elsewhere classified Category: Medical (8) Osteoarthritis, hip, bilateral: Code(s): M16.0 - Bilateral primary osteoarthritis of hip Category: Medical Plan Comprehensive metabolic panel went back completely negative for any liver or kidney changes I will continue her duloxetine, I also will continue baclofen for her. Her doses of duloxetine are elevated so in August of 2024 the comprehensive metabolic panel needs to be repeated. She is suspended indefinitely and a longer will prescribe tramadol for her. If she wants to receive it she could request primary care provider to do so for her. I will perform a trial of Curonix PNS for sacroiliac joint innervation as soon as we will get psychological evaluation from her psychology provider.. Patient Instructions: I here by testify that I spent 32 minutes in conversation with this patient as well as planning her care and organizing this note. Coding Level of Care Code Est Pt Level 4 (78607) Diagnoses Diabetic peripheral neuropathy E11.42 Osteoarthritis of right hip M16.11 Sacroiliac joint dysfunction of right side M53.3 Sacroiliac joint dysfunction of both sides M53.3 Fibromyalgia M79.7 Lumbar spondylosis M47.816 Sacroiliitis M46.1 Osteoarthritis, hip, bilateral M16.0
[2023-09-04 11:54] VITALS: BP 136/78; PULSE 89; RESP 16; O2SAT 98; BMI 33.6
== END 2023-09-04 12:06 | disposition home or self-care (01) ==
PROVIDERS: PCP Nurse Practitioner Family; Visit Provider Anesthesiology
DX: E11.42 Type 2 diabetes mellitus with diabetic polyneuropathy (principal); M16.11 Unilateral primary osteoarthritis, right hip; M53.3 Sacrococcygeal disorders, not elsewhere classified; M79.7 Fibromyalgia; M47.816 Spondylosis without myelopathy or radiculopathy, lumbar region; M46.1 Sacroiliitis, not elsewhere classified; M16.0 Bilateral primary osteoarthritis of hip
CPT/HCPCS: 99214

== ENCOUNTER → 2023-09-04 11:34 | Outpatient (BNVA) | payer MEDICARE, MEDICAID, SELFPAY | PROVIDERS: PCP Nurse Practitioner Family; Visit Provider Anesthesiology | DX: Z51.81 Encounter for therapeutic drug level monitoring (principal); F11.20 Opioid dependence, uncomplicated; M16.11 Unilateral primary osteoarthritis, right hip; M53.3 Sacrococcygeal disorders, not elsewhere classified; M79.7 Fibromyalgia; M47.816 Spondylosis without myelopathy or radiculopathy, lumbar region; M46.1 Sacroiliitis, not elsewhere classified; M16.0 Bilateral primary osteoarthritis of hip; E11.42 Type 2 diabetes mellitus with diabetic polyneuropathy | CPT/HCPCS: 99212 ==

== ENCOUNTER 2024-04-27 14:29 | Outpatient (REF) | payer MEDICARE, MEDICAID, SELFPAY ==
--- OUTSIDE RECORDS SUMMARY | 2024-04-27 15:25 | XMS_ITS | Encounter Summary ---
Author Organization [facility] Address [phone] [facility] [place] [address] Care Team Providers Care Therapeutic Riding Instructor Name Role Phone Sariah Jama NP Primary Care Provider [phone] Blanca Bernal MD Primary Care Provider + Shari Frances PA-C Unavailable [phone] Benigno Buchanan DO Unavailable [phone] Shari Frances PA-C Unavailable [phone] Erica More REAL ESTATE PORTFOLIO MANAGER Unavailable [phone] Encounter Details Date Type Department Care Team (Late st Contact Info) Description 03/11/2019 Ancillary Orders [facility] Department [address] [place] [phone] Lou Castillo NP [address] [place] [address] [email or web address] Dysphagia, unspecified type; Epigastric pain; Nausea Social History Tobacco Use Types Packs/Day Years Used Date Smoking Tobacco: Every Day Cigarettes Smokeless Tobacco: Never Alcohol Use Standard Drinks/Week Comments Not Currently 0 (1 standard drink = 0.6 oz pur e alcohol) Sex and Gender Information Value Date Recorded Sex Assigned at Not on file Gender Identity Not on file Sexual Orientation Not on file documented as of this encounter Plan of Treatment Upcoming Encounters Date Type Department Care Team (Late st Contact Info) Description 08/04/2024 11:30 AM EDT Office Visit [facility] [address] [place] [address] Shari Frances PA-C [address] [place] [address] [email or web address] documented as of this encounter Visit Diagnoses Diagnosis Dysphagia, unspecified type Epigastric pain Abdominal pain, epigastric Nausea Nausea alone documented in this encounter Care Teams Therapeutic Riding Instructor Relationship Specialty Start Date End Date Sariah Jama NP [address] [place] [address] [place] [address] PCP - General Family Medicine 06/11/18 11/09/19 Blanca Bernal MD [address] [place] [phone] [email or web address] PCP - General Family Medicine 11/10/19 Shari Frances PA-C [address] [place] [phone] [email or web address] Physician Mold Finisher Hematology 01/19/20 10/25/21 Benigno Buchanan DO [address] [place] [phone] [email or web address] Primary Oncologist Hematology and Oncology 10/23/20 Shari Frances PA-C [address] [place] [phone] [email or web address] Physician Mold Finisher Oncology 10/26/21 Erica More FNP [address] [place] [phone] [email or web address] Nurse Practitioner Oncology 10/26/21 documented as of this encounter Additional Source Comments The information contained in this document represents components of the legal health record. It is not the complete legal health record.[facility]
--- OUTSIDE RECORDS SUMMARY | 2024-04-27 15:25 | XMS_ITS | Encounter Summary ---
Author Organization [facility] Address [phone] [facility] [place] [address] Care Team Providers Care Dye House Hand Name Role Phone Blanca Bernal MD Primary Care Provider + Shari Frances PA-C Unavailable [phone] Benigno Buchanan DO Unavailable [phone] Shari Frances PA-C Unavailable [phone] Erica More WATER TRAINER Unavailable [phone] Encounter Details Date Type Department Care Team (Late st Contact Info) Description 11/29/2019 Procedure Pass [place] Admitting Dept - Virtual Department [address] [place] [phone] Social History Tobacco Use Types Packs/Day Years Used Date Smoking Tobacco: Every Day Cigarettes Smokeless Tobacco: Never Comments:1/2 PPD Alcohol Use Standard Drinks/Week Comments Never 0 (1 standard drink = 0.6 oz pur e alcohol) Sex and Gender Information Value Date Recorded Sex Assigned at Not on file Gender Identity Not on file Sexual Orientation Not on file documented as of this encounter Plan of Treatment Upcoming Encounters Date Type Department Care Team (Late st Contact Info) Description 08/04/2024 11:30 AM EDT Office Visit [facility] [address] [place] [address] Shari Frances PA-C [address] [place] [address] [email or web address] documented as of this encounter Visit Diagnoses Not on filedocumented in this encounter Care Teams Dye House Hand Relationship Specialty Start Date End Date Blanca Bernal MD [address] [place] [phone] [email or web address] PCP - General Family Medicine 11/10/19 Shari Frances PA-C [address] [place] [phone] Physician Public Message Service Supervisor Hematology 01/19/20 10/25/21 Benigno Buchanan DO [address] [place] [phone] [email or web address] Primary Oncologist Hematology and Oncology 10/23/20 Shari Frances PA-C [address] [place] [id number] [email or web address] Physician Public Message Service Supervisor Oncology 10/26/21 Erica More FNP [address] [place] [phone] Nurse Practitioner Oncology 10/26/21 documented as of this encounter Additional Source Comments The information contained in this document represents components of the legal health record. It is not the complete legal health record.[facility]
--- OUTSIDE RECORDS SUMMARY | 2024-04-27 15:25 | XMS_ITS | Encounter Summary ---
Author Organization [facility] Address [phone] [facility] [employer] [address] Care Team Providers Care Art Education Professor Name Role Phone Sariah Jama NP Primary Care Provider [phone] Blanca Bernal MD Primary Care Provider + Shari Frances PA-C Unavailable [phone] Benigno Buchanan DO Unavailable [phone] Shari Frances PA-C Unavailable [phone] Erica More HOT BOX OPERATOR Unavailable [phone] Encounter Details Date Type Department Care Team (Latest Contact Info) Description 03/08/2019 Transcribe Orders [facility] Department [address] [place] [address] [phone] Lou Castillo NP [address] [place], [place] [phone] [email or web address] Pharyngoesophageal dysphagia (Primary Dx) Social History Tobacco Use Types Packs/Day Years [...] Description 08/04/2024 11:30 AM EDT Office Visit [facility] [address] [place] [address] Shari Frances PA-C [address] [place] [address] [email or web address] documented as of this encounter Visit Diagnoses Diagnosis Pharyngoesophageal dysphagia- Primary Dysphagia, pharyngoesophageal phase documented in this encounter Care Teams Art Education Professor Relationship Specialty Start Date End Date Sariah Jama NP [address] [place] [address] [place] [address] PCP - General Family Medicine 06/11/18 11/09/19 Blanca Bernal MD [address] [place] [phone] [email or web address] PCP - General Family Medicine 11/10/19 Shari Frances PA-C [address] [place] [phone] [email or web address] Physician Conference Services Director Hematology 01/19/20 10/25/21 Benigno Buchanan DO [address] [place] [phone] [email or web address] Primary Oncologist Hematology and Oncology 10/23/20 Shari Frances PA-C [address] [place] [phone] Physician Conference Services Director Oncology 10/26/21 Erica More FNP [address] [place] [address] [email or web address] Nurse Practitioner Oncology 10/26/21 documented as of this encounter Additional Source Comments The information contained in this document represents components of the legal health record. It is not the complete legal health record.[facility]
--- OUTSIDE RECORDS SUMMARY | 2024-04-27 15:26 | XMS_ITS | Clinical Summary ---
Author Organization [facility] Address [phone] [facility] [place] [address] Care Team Providers Care Drafter [employer] Name Role Phone Blanca Bernal MD Primary Care Provider + Benigno Buchanan DO Unavailable Shari Frances PA-C Unavailable [phone] Erica More LIGHTHOUSE KEEPER Unavailable [phone] Allergies Active Allergy Reactions Criticality Noted Date Comments Adhesive Rash Low 06/17/2018 Banana Swelling 06/17/2018 Buprenorphine 11/24/2019 Gabapentin 06/17/2018 Mood changes Lamotrigine Anaphylaxis High 06/17/2018 Latex Rash Low 06/17/2018 Pregabalin Shortness Of Breath High 06/17/2018 Milk Containing Products (Dairy) Diarrhea 06/17/2018 Nsaids (Non-Steroidal Anti-Inflammatory Drug) Nausea and/or Vomiting 06/17/2018 Tapentadol 02/03/2019 Other Nausea and/or Vomiting 06/17/2018 Kavon Oxycodone Other (See Comments) High 11/29/2019 Pt reports she can't breath when she takes oxy Phenobarbital Sodium Nausea and/or Vomiting 11/24/2019 Fluoxetine 11/24/2019 Topiramate 06/17/2018 Mood changes Tramadol Shortness Of Breath High 11/24/2019 Pt denies allergy Trazodone Shortness Of Breath High 11/24/2019 Bupropion Hcl Shortness Of Breath High 06/17/2018 Alprazolam Nausea and/or Vomiting 12/03/2019 Medications Medication Sig Dispensed Refills Start Date End Date Status promethazine (PHENERGAN) [address] 25 mg rectally 3 (three) times a day as needed. Active triamcinolone (NASACORT AQ) 55 mcg/actuation nasal inhaler 2 sprays by Nasal route daily. Active DULoxetine (CYMBALTA) 30 MG capsule Take 30 mg by mouth daily with breakfast. Active DULoxetine (CYMBALTA) 60 MG capsule Take 40 mg by mouth 2 (two) times a day. Active amantadine HCl (SYMMETREL) 100 mg capsule Take 100 mg by mouth daily. Active loratadine (CLARITIN) 10 mg tablet Take 10 mg by mouth daily. Active pantoprazole (PROTONIX) 40 MG tablet Take 40 mg by mouth daily. Active baclofen (LIORESAL) 10 MG tablet Take 10 mg by mouth 2 (two) times a day. Active LORazepam (ATIVAN) 2 MG tablet Take 2.5 mg by mouth nightly at bedtime. Active ALPRAZolam (XANAX) 0.5 MG tablet Take 0.5 mg by mouth 4 (four) times a day as needed. Active albuterol 90 mcg/actuation inhaler Inhale 2 puffs into the lungs 4 (four) times a day as needed. Active albuterol (ACCUNEB) 0.63 mg/3 mL nebulizer solution Take 1 ampule by nebulization 4 (four) times a day as needed. Active nystatin (NYSTOP) powderIndications: 2-3 times daily Apply topically daily. Indications: 2-3 times daily Active lidocaine (LIDODERM) 5 % Place 3 patches onto the skin daily. Remove & Discard patch within 12 hours or as directed by MD Active calcium carbonate-vitamin D3 (CALCIUM 600 WITH VITAMIN D3) 600 mg(1,500mg) -400 unit Cap Take by mouth daily. A ctive sucralfate (CARAFATE) 100 mg/mL suspension Take 10 mL by mouth as needed. Active L acidophil/B lactis/B longum (FLORAJEN3 ORAL) Take 1 capsule by mouth daily. Active blood sugar diagnostic Strp stripsIndications: Freestyle lite 1 each by Miscellaneous route as needed. Indications: Freestyle lite Active MULTIVITAMIN ORAL Take by mouth daily. Active coenzyme Q10 200 mg capsule Take 200 mg by mouth daily. Active budesonide-formote rol (SYMBICORT) 80-4.5 mcg/actuation inhaler Inhale 2 puffs into the lungs 2 (two) times a day. Active docusate sodium (COLACE) 100 MG capsuleIndications :taking daily Take 100 mg by mouth 2 (two) times a day. Indications: taking daily Active cyanocobalamin (VITAMIN B-12) 1,000 mcg/mL injection Inject 1,000 mcg into the muscle every 30 (thirty) days. Active diazePAM (VALIUM) 5 MG tablet Take 5 mg by mouth daily. Active Medication-Free Text Iron infusions as needed, Feraheme 510 mg given 08/28/23 Active glucosamine-chondr oitin 500-400 mg Cap Take 1 capsule by mouth daily. Active folic acid (FOLVITE) 1 MG tablet Take 1 tablet (1,000 mcg total) by mouth daily. 90 tablet 3 01/10/2021 Active fluticasone propionate (FLONASE) 50 mcg/actuation nasal spray 1 spray by Nasal route 2 (two) times a day. 06/25/2023 Active traMADoL (ULTRAM) 50 mg tablet Take 50 mg by mouth every 6 (six) hours as needed. 08/01/2023 Active varenicline (CHANTIX) 1 mg tablet Take 1 mg by mouth 2 (two) times a day. Active nicotine (NICODERM CQ) 21 mg/[address] 1 patch onto the skin daily. Active Active Problems Problem Noted Date Diagnosed Date History of gastric bypass 11/01/2019 Iron deficiency anemia 09/22/2019 ASCUS of cervix with negative high risk HPV 01/16 Overview (02/04/2019): ASCCP guidelines: repeat cotesting in 3 years Lumbar spondylosis 06/25/2018 Lumbosacral spondylosis without myelopathy 06/25 Immunizations Name Administration Dates Next Due Hepatitis B, unspecified formulation 12/08/2008, 08/03/2008,06/17/2008 Influenza Quadrivalent Prese rvative Free IM 12/08/2019,12/25/2018,02/04/2017,12/28,11/18/2014 Influenza Quadrivalent w/ Pr eservative IM 01/10/2018 Influenza Trivalent Preserva tive Free IM 12/14/2012 Influenza Trivalent w/ Preservative IM 1 03/24/2020,01/07/2014,11/15/2011,12/11,01/09/2010 Influenza, Unspecified Formulation 11/26,01/20/2007,01/08/2005,02/01,02/03/2003,12/31/2001 MMR 08/03/2008,06/17/2008 Novel [id number], Injectable 04/21/2009 Pneumococcal conjugate PCV13 11/18/2014 Pneumococcal polysaccharide PPSV23 02/13/2010 Td, unspecified formulation 04/30/2006 Tdap 09/24/2011 Family History Medical History Relation Comments Diabetes Brother Diabetes Father Hypertension Father Prostate cancer Father Rheumatoid arthritis Maternal Aunt ALS Mother Neurological disorder Mother COPD Unspecified Relation Status Comments Brother Father Maternal Aunt Mother Unspecified Social History Tobacco Use Types Packs/Day Years Used Date Smoking Tobacco: Every Day Cigarettes Smokeless Tobacco: Never Comments:1/2 PPD Alcohol Use Standard Drinks/Week Comments Never 0 (1 standard drink = 0.6 oz pur e alcohol) Education Answer Date Recorded Are you interested in more education? Not on alex e 07/12/2022 Are you concerned about learning? Not on file 07/12/2022 No 07/12/2022 No 07/12/2022 Digital Access Answer Date Recorded No 08/10/2022 No 08/10/2022 Reliable internet access at home? Not on file 08/10/2022 Device with a working camera? Not on file Sex and Gender Information Value Date Recorded Sex Assigned at Not on file Gender Identity Not on file Sexual Orientation Not on file Last Filed Vital Signs Vital Sign Reading Time Taken Comments Blood Pressure 90/59 09/09/2023 12:31 PM EDT Pulse 71 09/09/2023 12:31 PM EDT Temperature 35.7 ??C (96.3 ??F) 09/09/2023 11:30 AM E DT Respiratory Rate 18 09/09/2023 12:31 PM EDT Oxygen Saturation 95% 09/09/2023 12:31 PM EDT Inhaled Oxygen Concentration - - Weight 96.2 kg (212 lb 1.6 oz) 08/06/2023 11:07 AM EDT Height 170.2 cm (5' 7 ) 08/06/2023 11:07 AM EDT Body Mass Index 33.22 08/06/2023 11:07 AM EDT Plan of Treatment Upcoming Encounters Date Type Department Care Team (Late st Contact Info) Description 08/04/2024 11:30 AM EDT Office Visit [facility] [place] [address] [place] [address] Shari Frances PA-C [address] [place] [address] Health Maintenance Due Date Last Done Comments LIPID PANEL 1961 DEPRESSION SCREENING 1973 SMOKING Hx and SMOKELESS TOBACCO SCREENING 1974 HEPATITIS B SCREENING 06/21/1979 HEPATITIS C SCREENING 06/21/1979 HIV ONE-TIME SCREENING (18-65 YEARS) 06/21/1979 MAMMOGRAM 2001 COLOGUARD 2006 COLONOSCOPY 2006 COLORECTAL CANCER SCREENING 2006 FIT TEST 2006 FOBT 2006 SIGMOIDOSCOPY 2006 VIRTUAL COLONOSCOPY 2006 PNEUMOCOCCAL VACCINES (50+ years) (3 of 3 - PCV20 or PCV21) 11/19/2019 11/18/2014, 02/13/2010 Adult Td,Tdap Booster 09/23/2021 09/24/2011, 007 PAP SMEAR 12/25/2021 12/25/2018, 03/11/2017 SCREENING FOR DIABETES 11/28/2022 11/29/2019 ZOSTER VACCINES (2 of 2) 04/10/2023 02/13/2023 INFLUENZA VACCINE (#1) 2023 , 12/08/2019, 12/25/2018, Additional history exists COVID-19 VACCINE ( - season) 2023 RSV VACCINE (1 - 1-dose 75+ series) 2036 HEPATITIS B VACCINES Completed 12/08/2008, 08/03/2008, 06/17/2008 HEPATITIS A VACCINES Aged Out No long er eligible based on patient's age to complete this topic HIB VACCINES Aged Out No longer eligi ble based on patient's age to complete this topic MENINGOCOCCAL VACCINES (ACWY) Aged Out No longer eligible based on patient's age to complete this topic Medical Devices Not on file Procedures Procedure Name Priority Date/Time Associated Diagnosis Comments PAP TEST Routine 12/25/2018 12:00 AM EDT from Last 3 Months or Most Recently Relevant to Health Maintenance Results * (ABNORMAL) Pap Smear (12/25/2018 12:00 AM EDT) 12/25/2018 12/26/2018 2:3 9 PM EDT Narrative SEE NARRATIVE - 01/12/2019 9:52 AM EDT [address] [id number] Beverage Sales Consultant: Oanh Valdovinos MD ?? RETAIL BANKER Cytology Report FINAL DIAGNOSIS A. ??PAP SMEAR (SUREPATH) CE: SPECIMEN ADEQUACY: Satisfactory for evaluation; transformation zone present. INTERPRETATION: EPITHELIAL CELL ABNORMALITY - SQUAMOUS. Atypical squamous cells of undetermined significance. Electronically Signed Out By: ??Oanh Valdovinos MD [facility] By his/her signature above, the pathologist listed as making the Final Diagnosis certifies that he/she has personally reviewed this case and confirmed or corrected the diagnosis. The Pap test is a screening test primarily for squamous cancers and precursors and has associated false-negative and false-positive results. ??New technologies such as liquid-based preparations may decrease but will not eliminate all false-negative results. ??Regular sampling and follow-up of unexplained clinical signs and symptoms are recommended to minimize false negative results. PROCEDURES/ADDENDA HPV Testing (Reflex) Ordered Date: 01/01/2019 ? A. PAP SMEAR (SUREPATH) CE: ??Human Papilloma Virus Test Negative for high-risk human papillomavirus types 16, 18, 45 and the Other high risk probe set (Includes 31, 33, 35, 39, 51, 52, 56, 58, 59, 66, 68) by [employer] Views Onclarity HR-HPV analysis. Clinical correlation is advised. This HPV test was performed at [facility], [address] [place] [address]. This test has been FDA approved for SurePath cervical cytology specimens. The accuracy and precision of this test for all other specimen sources has been verified in the Cytopathology Laboratory of the [facility] and has not been cleared or approved by the U.S. Food and Drug Administration. Clinical correlation is advised. ? CLINICAL HISTORY Date of Last Menstrual Period: ??Not Provided Menstrual History: ??Post Menopausal Other Clinical Conditions: ??Screening Pap SPECIMEN SOURCE A: PAP SMEAR (SUREPATH) CE Patient Name: ??MAREN MARIEE : ??1960 (Age: 58) Sex: ??F Institution[facility] Date of Collection: ??12/25/2018 Date of Reported: ??01/01/2019 15:42 Results to: Martha Vaughn NP Martha Vaughn NP CYTOLOGY ORDERABLES SEE NARRATIVE from Last 3 Months or Most Recently Relevant to Health Maintenance Advance Directives * Full Code (Latest Code Status on File) Date Activated Date Inactivated Comments 11/29/2019 7:57 AM Question Answer Comments Code Status Confirmed With: Patient Care Teams Drafter [employer] Layout Relationship Specialty Start Date End Date Blanca Bernal MD [address] [place] [id number] [email or web address] PCP - General Family Medicine 11/10/19 Benigno Buchanan DO [address] [place] [id number] [email or web address] Primary Oncologist Hematology and Oncology 10/23/20 Shari Frances PA-C [address] [place] [id number] [email or web address] Physician Program Control Analyst Oncology 10/26/21 Erica More FNP [address] [place] [id number] [email or web address] Nurse Practitioner Oncology 10/26/21 Additional Source Comments The information contained in this document represents components of the legal health record. It is not the complete legal health record.[facility]
[2024-04-27 17:21] LABS: Alanine Aminotransferase 13 U/L (0-31); Albumin Level 4.3 g/dL (3.5-5.0); Alkaline Phosphatase 99 U/L (39-117); Anion Gap 13 (12-20); Aspartate Amino Transferase 19 U/L (5-31); Bilirubin Total 0.3 mg/dL (0.0-1.0); Blood Urea Nitrogen 13 mg/dL (9-16); Carbon Dioxide 24 mmol/L (22-29); Chloride 110 mmol/L (96-108); Estimated Glomerular Filt Rate > 60; Glucose Fasting 87 mg/dL (60-99); Potassium 4.2 mmol/L (3.3-5.1); Sodium 143 mmol/L (135-145); Total Protein 7.3 g/dL (6.5-8.0)
== END 2024-04-27 14:30 | disposition home or self-care (01) ==
LOC: HO.LAB 14:29
PROVIDERS: PCP Nurse Practitioner Family; Visit Provider Anesthesiology
DX: K71.6 Toxic liver disease with hepatitis, not elsewhere classified (principal); T50.905A Adverse effect of unspecified drugs, medicaments and biological substances, initial encounter
CPT/HCPCS: 36415; 80053